=== PATIENT | female | born 1955 | race Caucasian/White ===

== ENCOUNTER → 2016-10-04 | Day surgery (SDC) | payer OTHER ==
[2016-10-04 08:37] LABS: ABSOLUTE BASOPHIL COUNT 0 /CUMM (0.0-0.2); ABSOLUTE EOSINOPHIL COUNT 0.2 /CUMM (0.0-0.7); ABSOLUTE GRANULOCYTE CT 4.6 /CUMM (1.4-6.5); ABSOLUTE LYMPH COUNT 1.8 /CUMM (1.2-3.4); ABSOLUTE MONOCYTE COUNT 0.4 /CUMM (0.10-0.60); BASOPHIL % 0.4 % (0.0-2.0); EOSINOPHIL % 3.1 % (0-5); HEMATOCRIT 41.3 % (37-47); MEAN CORPUSCULAR HGB 27.2 PG (27.0-31.0); MEAN CORPUSCULAR HGB CONC 33.6 G/DL (33.0-37.0); MEAN CORPUSCULAR VOLUME 80.8 FL (81.0-99.0); MEAN PLATELET VOLUME 9.1 FL (7.4-10.4); PLATELET COUNT 252 /CUMM (130-400); RBC DISTRIBUTION WIDTH 13.6 % (11.5-14.5); RED BLOOD CELL CT 5.12 /CUMM (4.20-5.40)
--- NOTE | 2016-10-04 11:15 | RADIOLOGY REPORT ---
EXAMINATION: XR ABDOMEN CLINICAL INDICATION: Cystocele/rectocele repair in OR. Question foreign body. Law suture. COMPARISON: CT from 10/28/2014 TECHNIQUE: Single view of the lower abdomen FINDINGS: Surgical clips overlie the right hemipelvis. There is a drain in place. Surgical clips overlie the right hemipelvis. Packing material overlies the region of the pubic symphysis. No unsuspected radiopaque foreign body identified. The bowel gas pattern is unremarkable. IMPRESSION: No unsuspected radiopaque foreign body. This critical result was discussed with MEA ALVARADO MD by telephone at 10/04/2016 11:11 AM and it was ascertained that the content and urgency of the report was understood at the time of direct communication.
--- NOTE | 2016-10-04 16:26 | Operative Report ---
Operative/Inv Procedure Report Surgery Date: 10/04/16 Name of Procedure: cystocele repair with mesh, rectocele with Acell mesh, urethral sling, cystoscopy Pre-Operative Diagnosis: cystocele, rectocele, urinary incontinence Post-Operative Diagnosis: same Estimated Blood Loss: 50ml to 100ml Surgeon/Chief [employer]: MAE ALVARADO MD Anesthesia: general endotracheal tube Implants: vaginal mesh x3 Complications: none Condition: stable Operative Indication: cystocele grade 3-4, rectocele grade 3, stress incontinence with bladder reduced with mesh repair Operative/Procedure Note Note: This an operative dictation on patient Eugenia Mckeon. Patient was identified in the holding area and consented for cystocele repair with mesh rectocele repair with a cell mesh urethral sling and cystoscopy. She was given the risks benefits and alternatives of the surgery. All questions were answered. Patient was taken to the operating room placed on the operating table in the supine position. Once the timeout was performed general anesthesia was started and the patient was intubated and IV antibiotics were infused. Patient was placed in the dorsal lithotomy position. She was prepped and draped in the standard sterile fashion after being shaved. Browning catheter was placed at the beginning of the surgery and the bladder was drained. This was clamped and placed on the patient's abdomen. Wynona retractor was placed for vaginal vault visualization. 1% lidocaine with epinephrine was infiltrated into the anterior vaginal wall from the bladder neck to the cervix. The vaginal flaps are created taking care not to injure the bladder. The Coloplast Restoril mesh was then opened and used to reduce the cystocele. This was done first using the By mouth thin to place Ethibond sutures in the sacrospinous ligament on the patient's left and right side retropubically. 2 sutures were also placed at the level of the bladder neck and the arcus tendineus fascia. These were then placed through the Restoril mesh as well as distal proximal 2-0 Vicryl sutures. The sacrospinous ligaments with sutures were then tied down and seen to be in position followed by the bladder neck sutures. The mesh was seen to reduce the cystocele nicely. This was in a tension-free manner. Methylene blue was given at this time to check for the patency of the ureteral orifices. The endoscope was irrigated and the incision was closed using running locking 2-0 Vicryl suture. The cystoscopy was performed at this point in the bladder was globally inspected. There was no abnormalities and the bladder or urethra. Ureteral orifices were easily identified and E Deflux was seen emanating from both ureters. 5 [place]an open-ended catheter was also used to cannulate the both in the easily passed. Patient bladder was then emptied and a Browning catheter was placed back into the bladder. The Altis Sling was then placed after the cystocele repair. The 1% lidocaine with epinephrine was infiltrated into the anterior vaginal wall suburethrally. The incision was made and the vaginal flaps are created taking care not to injure the urethra. The UltraSling kit was then used to place the mesh in a tension-free manner tightening the Prolene suture that's used for this map for this. The trochars that are provided by the kit was used to place into the ureter fascia. Sling was seen to be in a good flat orientation and a tension- free manner. There was grossly irrigated bacitracin irrigation. Incision was closed with a running locking 3-0 Vicryl suture. Cystoscopy was performed and there was no mesh in the bladder or the urethra. Bladder was emptied. Attention was then turned to the rectocele portion of the case. 1% lidocaine was infiltrated into the posterior vaginal wall. The vaginal posterior vaginal wall was then dissected free from the rectocele taking care not to injure to the rectum injure the rectum. Intermittent numb digitation of the rectum was performed to ensure that this did not occur. Once the rectocele was completely dissected free the 2-0 Vicryl interrupted sutures were placed along the lateral portion of the rectocele near the fascia. A cell mesh which had been placed into saline prior to that and soaking for 20 minutes was then used to place within the sutures and the sutures were tied down sequentially from the proximal portion to the distal portion. This reduced the rectocele nicely. The epithelium of the posterior vault was then closed using running locking 2-0 Vicryl suture. The peritoneum was closed using 3-0 Vicryl running locking suture. The sponge and needle count were correct at the end of the case. 2 inch vaginal packing impregnated with bacitracin ointment was placed into the vagina. Findings: no mesh in bladder or urethra, good ureteral efflux from both ureteral orifices. Discharge Disposition: PACU
== END ==
LOC: STS 01:58
PROVIDERS: Urology
DX: N39.3 Stress incontinence (female) (male) (principal); N81.10 Cystocele, unspecified; N81.6 Rectocele; I10 Essential (primary) hypertension; E11.9 Type 2 diabetes mellitus without complications; Z79.84 Long term (current) use of oral hypoglycemic drugs; Z86.718 Personal history of other venous thrombosis and embolism; Z79.82 Long term (current) use of aspirin
CPT/HCPCS: 74000; C1781; J0131; J0690; J2250

== ENCOUNTER 2017-09-30 17:55 | Inpatient (IN) | payer OTHER ==
[~2017-09-30] VITALS: Ht 165.1 cm; Wt 99.3 kg
--- NOTE | 2017-09-30 20:44 | ED GI/GU/ABDOMINAL COMPLAINT ---
History of Present Illness General Chief Complaint: General Adult Stated Complaint: "I HAVE A STOMACH VIRUS" Source: patient Exam Limitations: no limitations Allergies Coded Allergies: NO KNOWN ALLERGIES (10/07/13) Reconcile Medications Amlodipine Besylate 10 MG TABLET 1 TAB PO DAILY HIGH BLOOD PRESSURE (Reported ) Ergocalciferol (Vitamin D2) (Vitamin D2) 50,000 UNIT CAPSULE 1 CAP PO DAILY VITAMIN SUPPORT (Reported) Losartan/Hydrochlorothiazide (Losartan-Hctz 100-12.5 MG Tab) 100 MG-12.5 MG TABLET 1 TAB PO DAILY HIGH BLOOD PRESSURE (Reported) Metformin HCl 1,000 MG TABLET 1 TAB PO BID DIABETES (Reported) Pravastatin Sodium 40 MG TABLET 1 TAB PO DAILY HIGH CHOLESTROL (Reported) Propranolol HCl 10 MG TABLET 1 TAB PO DAILY HIGH BLOOD PRESSURE (Reported) Triage Note: PT STATES SHE HAS A STOMACH VIRUS SINCE FRIDAY. N/V Triage Nurses Notes Reviewed? yes ? n Is pt currently ? No Onset: Gradual Duration: day(s): Timing: multiple episodes today Quality/Severity: cramping, severe Severity Numbers: 10 Location: epigastric Radiation: no radiation Activities at Onset: none Prior Abdominal Problems: none Last Time You Were Sexual: greater than 2 months ago Sexual Orientation: Heterosexual No Modifying Factors: none Associated Symptoms: abdominal pain, diarrhea, loss of appetite, nausea/vomiting HPI: PATIENT IS A 62 Y/O FEMALE, PMH OF HTN, TYPE 2 DM, HLD, DVT/PE, UTERINE CANCER, LIDA PRESENTING WITH 2 DAYS OF ABDOMINAL PAIN. PATIENT STATES THAT HER PAIN COMES AND GOES THROUGHOUT THE DAY AND IS A 10/10 AT ITS WORST. SHE DESCRIBES IT A TWISTING SENSATION IN HER EPIGASTRIC AREA WITH ASSOCIATED NAUSEA, VOMITING, CONSTIPATION, DIARRHEA, BLOATING, AND GERD SYMPTOMS. SHE IS UNSURE OF THE COLOR OF HER STOOLS AND IF THERE WAS ANY BLOOD OR MUCOUS PRESENT. HER MOTHER RECENTLY HAD THE FLU AND THE PATIENT THINKS THAT THIS COULD BE RELATED TO THE FLU. SHE DENIES AND CP, SOB, HEADACHES, FEVERS, CHILLS, MUSCLE ACHES, DYSURIA. (Bird Morgan) Vital Signs & Intake/Output Vital Signs & Intake/Output Vital Signs Date Time Temp Pulse Resp B/P B/P Pulse O2 O2 Flow FiO2 Mean Ox Delivery Rate 10/03 2224 98.5 78 19 120/60 93 Nasal Cannula 01/05 2137 78 120/60 10/03 1502 99.0 77 18 114/66 96 Nasal Cannula 10/03 1400 99.0 77 18 114/66 96 Nasal 4.0L Cannula 10/03 1143 Nasal 2.0L Cannula 10/03 1029 76 146/78 10/03 1029 76 146/78 10/03 1028 76 146/78 10/03 0800 Nasal 4.0L Cannula 10/03 0600 99.5 69 18 110/60 92 Nasal 2.5L Cannula ED Intake and Output 10/04 0000 10/03 1200 Intake Total 620 400 Output Total 530 90 Balance 90 310 Intake, IV 400 Intake, Oral 620 Number 0 Bowel Movements Output, 180 90 Drainage Output, Urine 350 Patient 219 lb Weight (Katiana AMAYA,Candi Laura) Past History Travel History Traveled to [place] past 21 day No Medical History Any Pertinent Medical History? see below for history Cardiovascular: hypertension, hyperlipidemia Respiratory: obstructive sleep apnea, pulmonary embolism Musculoskeletal: DVT Endocrine: diabetes Cancer(s): endometrial cancer History of MRSA: No History of VRE: No History of CDIFF: No Influenza Vaccine: 06/29/13 Surgical History Surgical History: appendectomy, hysterectomy, HEMITHYMECTOMY Psychosocial History Who do you live with Mother Services at Home None What is your primary language [place] Tobacco Use: Never used ETOH Use: denies use Illicit Drug Use: denies illicit drug use Family History Family History, If Any: FATHER (HTN, lung CA ). Hx Contributory? No (Bird Morgan) Review of Systems Review of Systems Constitutional: Reports: no symptoms. EENTM: Reports: no symptoms. Respiratory: Reports: no symptoms. Cardiovascular: Reports: no symptoms. GI: Reports: see HPI. Genitourinary: Reports: no symptoms. Musculoskeletal: Reports: no symptoms. Skin: Reports: no symptoms. Neurological/Psychological: Reports: no symptoms. Hematologic/Endocrine: Reports: no symptoms. Immunologic/Allergic: Reports: no symptoms. All Other Systems: Reviewed and Negative (Bird Morgan) Physical Exam Physical Exam General Appearance: well developed/nourished, alert, awake, comfortable, mild distress, obese Head: atraumatic, normal appearance Eyes: Bilateral: normal appearance, EOMI. Ears, Nose, Throat, Mouth: hearing grossly normal, moist mucous membrane Neck: normal inspection, supple, normal alignment Respiratory: normal breath sounds, chest non-tender, no respiratory distress Cardiovascular: regular rate/rhythm, normal peripheral pulses Peripheral Pulses: 2+ radial (R), 2+ radial (L), 2+ tibialis posterior (R), 2+ tibialis posterior ( L), 2+ dorsalis pedis (R), 2+ dorsalis pedis (L) Gastrointestinal: normal bowel sounds, soft, no organomegaly, distention, tenderness, hernia Rectal: deferred Back: normal inspection Extremities: normal range of motion Neurologic/Psych: awake, alert, oriented x 3 Skin: intact Core Measures ACS in differential dx? No Sepsis Present: No Sepsis Focused Exam Completed? No (Bird Morgan) Progress Differential Diagnosis: biliary colic, bowel obstruction, diverticulitis, ischemic bowel, perforated viscous, SBO, UTI/pyelo Diagnostic Imaging: Viewed by Me: CT Scan. Discussed w/RAD: CT Scan. Initial ED EKG: none (Bird Morgan) Plan of Care: Orders Procedure Date/time Status Full Liquid Diet 10/03 L Active THERAPIST ORDERS 10/03 1600 Complete RT: Evaluation 10/03 1142 Active TRC EVALUATION (GEN) 10/03 UNK Complete PULSE OXIMETRY (GEN) 10/03 UNK Complete INCENTIVE SPIROMETRY TRX (GEN) 10/03 UNK Complete PT Evaluate & Treat 10/03 UNK Active PT EVAL LOW COMPLEX 20 MIN 10/03 UNK Complete Gait Training 10/03 UNK Complete CASE MANAGEMENT CONSULT 10/03 UNK Active OXYGEN 10/02 UNK Complete OXYGEN DAILY CHARGE 10/02 UNK Complete Current Medications Sig/Jasmin Start time Last Medication Dose Stop Time Status Admin Docusate Sodium 100 MG BID 10/03 1000 AC 10/03 (Colace) 2136 Pravastatin Sodium 40 MG 1700 10/02 1700 AC 10/03 (Pravachol) 1822 Amlodipine Besylate 10 MG DAILY 10/02 1000 AC 10/03 (Norvasc) 1028 Hydrochlorothiazide 12.5 MG DAILY 10/02 1000 AC 10/03 (Hydrodiuril) 1028 Losartan Potassium 100 MG DAILY 10/02 1000 AC 10/03 (Cozaar) 1029 Heparin Sodium 5,000 UNIT Q8 10/02 0800 AC 10/03 (Porcine) 2138 Oxycodone/ 1 TAB Q4P PRN 10/02 0800 AC Acetaminophen (Percocet) Oxycodone/ 2 TAB Q4P PRN 10/02 0800 AC Acetaminophen (Percocet) Propranolol HCl 10 MG BID 10/01 2199 AC 10/03 (Inderal 10 MG 2136 Tablet.) Insulin Human Regular 0 TIDAC/HS 10/01 2100 AC 10/03 (NovoLIN R) 1823 Acetaminophen 650 MG Q6P PRN 10/01 1944 AC (Tylenol) Morphine Sulfate 4 MG Q2P PRN 10/01 1944 AC 10/02 (Morphine) 0831 Ondansetron HCl 4 MG Q6P PRN 10/01 1944 AC 10/02 (Zofran) 0156 Promethazine HCl 12.5 MG Q6P PRN 10/01 1944 AC (Phenergen) 10/08 0014 Laboratory Tests 10/03/17 0735: Anion Gap 11, Estimated GFR > 60, BUN/Creatinine Ratio 15.7, CBC w Diff NO MAN DIFF REQ, RBC 4.26, MCV 82.2, MCH 27.9, RDW 12.8, MPV 9.9, Gran % 77.2 H, Lymphocytes % 14.2 L, Monocytes % 7.5, Eosinophils % 0.8, Basophils % 0.3, Absolute Granulocytes 8.7 H, Absolute Lymphocytes 1.6, Absolute Monocytes 0.8 H, Absolute Eosinophils 0.1, Absolute Basophils 0, PUBS MCHC 33.9 Radiology Impression: PATIENT: JOSH BAKER PRESENT AGE : 62 PATIENT ACCOUNT NO: [id number] : 56 LOCATION: [facility] ORDERING PHYSICIAN: Bird AMAYA SERVICE DATE: 09/30/17 EXAM TYPE: CAT - CT ABD & PELVIS W IV CONTRAST EXAMINATION: CT ABDOMEN AND PELVIS WITH CONTRAST CLINICAL INFORMATION: Abdominal pain, abdominal distention. COMPARISON: 2016. TECHNIQUE: Contiguous axial thin section helical images of the abdomen and pelvis were performed following the administration of 100 mL of intravenous Omnipaque 300 Optiray 320. The data set was reformatted in the coronal and sagittal planes and reviewed on an independent workstation. DLP: 983 mGy-cm. FINDINGS: The visualized lung bases are clear. The visualized portions of the heart are unremarkable. The liver is of normal size and attenuation without focal lesions nor intrahepatic biliary ductal dilation. There are calculi along with high attenuation bile within the gallbladder lumen. There is no wall thickening or discernible pericholecystic fluid. The spleen, pancreas, adrenal glands are unremarkable. Both kidneys are of normal size and attenuation without hydronephrosis or nephrolithiasis. Following the administration of IV contrast, prompt symmetric nephrograms are displayed. There is a small amount of free fluid overlying the right lobe of liver. There is neither mesenteric nor retroperitoneal lymphadenopathy. There is a lower anterior abdominal wall hernia containing bowel as well as a small amount of free fluid. Proximal to this hernia, there are dilated loops of bowel indicative of obstruction. There is a trace amount of pelvic free fluid. The urinary bladder is unremarkable. There is neither pelvic nor inguinal lymphadenopathy. Bone windows: Neither sclerotic nor lytic bone lesions are identified. IMPRESSION: Small bowel obstruction secondary to in utero abdominal wall hernia. Small amount of free fluid. Cholelithiasis without evidence of cholecystitis. DICTATED BY: Jordan Yanes MD DATE/TIME DICTATED:09/30/172239 VOCATIONAL NURSING INSTRUCTOR:GERMAN DATE/TIME TRANSCRIBED:2239 CONFIDENTIAL, DO NOT COPY WITHOUT APPROPRIATE AUTHORIZATION. < Electronically signed in Other Vendor System> SIGNED BY: Jordan Yanes MD 09/30/17 0081 Comments: CT scan shows small bowel obstruction. Findings were discussed with the patient. Awaiting general surgery page. Patient started on IV fluids. Discussed this patient with Dr. Adams, he recommends evaluation by surgical PA. MONIQUE Wahl present to see and evaluate patient. Patient's hernia was manually reduced. It Was recommended that patient be placed in observation regarding her hernia and small bowel obstruction. She may require NG tube, IV fluids, monitoring of further abdominal pain, surgical consult. (Katiana AMAYA,Candi Laura) Departure Departure Condition: Stable Referrals: Yadira Wick MD (PCP/Family) Departure Forms: Customer Survey General Discharge Information (Bird Morgan) Departure Disposition: STILL A PATIENT Clinical Impression Primary Impression: Abdominal hernia with obstruction Secondary Impressions: Small bowel obstruction Observation Note Spoke With: Bryan NARVAEZ,John Douglas Physician Advisor Notified: MANJU GUTIERREZ DO Place Patient In: Non-ED OBS Care Area Rationale for Observation: My rational for observation is as follows [small bowel obstruction due to hernia , hernia reduced however patient requiring observation to assess for further pain, further bowel obstruction, surgical consult]. (Candi Allen) PA/REGISTERED NURSE FETAL Co-Sign Statement Statement: ED Attending supervision documentation- [x] I saw and evaluated the patient. I have also reviewed all the pertinent lab results and diagnostic results. I agree with the findings and the plan of care as documented in the PA's/REGISTERED NURSE FETAL's documentation. pt with abd hernia w/ obstruction. merits surgical repair. pt to be admitted to surgery for further care. [] I have reviewed the ED Record and agree with the PA's/REGISTERED NURSE FETAL's documentation. [] Additions or exceptions (if any) to the PAs/REGISTERED NURSE FETAL's note and plan are summarized below: [] (Lidia NARVAEZ,Ernie Starr) Secondary Impressions: Small bowel obstruction Observation Note Spoke With: Bryan NARVAEZ,John Douglas Physician Advisor Notified: MANJU GUTIERREZ DO Place Patient In: Non-ED OBS Care Area Rationale for Observation: My rational for observation is as follows [small bowel obstruction due to hernia , hernia reduced however patient requiring observation to assess for further pain, further bowel obstruction, surgical consult]. (Candi Allen)
[2017-09-30] MEDS ORDERED: PROPRANOLOL HCL10 M1 PO (21:35)
[2017-09-30] MEDS ORDERED: AMLODIPINE BESY10 M1 PO (21:36)
[2017-09-30] MEDS ORDERED: METFORMIN HCL1000 M1 PO (21:38)
[2017-09-30] MEDS ORDERED: VITAMIN D250000 UNIT PO (21:38)
[2017-09-30] MEDS ORDERED: PRAVASTATIN SOD40 M2 PO (21:39)
[2017-09-30] MEDS ORDERED: LOSARTAN-HCTZ1 EACH PO (21:39)
[2017-09-30 21:44] LABS: ABSOLUTE BASOPHIL COUNT 0 /CUMM (0.0-0.2); ABSOLUTE EOSINOPHIL COUNT 0.1 /CUMM (0.0-0.7); ABSOLUTE GRANULOCYTE CT 8.4 /CUMM (1.4-6.5); ABSOLUTE LYMPH COUNT 1.5 /CUMM (1.2-3.4); ABSOLUTE MONOCYTE COUNT 0.8 /CUMM (0.10-0.60); BASOPHIL % 0.2 % (0.0-2.0); EOSINOPHIL % 0.7 % (0-5); GRANULOCYTE % 77.8 % (42.2-75.2); HEMATOCRIT 45.5 % (37-47); MEAN CORPUSCULAR HGB 27.9 PG (27.0-31.0); MEAN CORPUSCULAR HGB CONC 33.8 G/DL (33.0-37.0); MEAN CORPUSCULAR VOLUME 82.7 FL (81.0-99.0); MEAN PLATELET VOLUME 9.3 FL (7.4-10.4); PLATELET COUNT 300 /CUMM (130-400); RBC DISTRIBUTION WIDTH 12.8 % (11.5-14.5); WHITE BLOOD CELL COUNT 10.8 /CUMM (4.8-10.8)
--- NOTE | 2017-09-30 22:55 | CT SCAN REPORT ---
EXAMINATION: CT ABDOMEN AND PELVIS WITH CONTRAST CLINICAL INFORMATION: Abdominal pain, abdominal distention. COMPARISON: 10/04/2016. TECHNIQUE: Contiguous axial thin section helical images of the abdomen and pelvis were performed following the administration of 100 mL of intravenous Omnipaque 300 Optiray 320. The data set was reformatted in the coronal and sagittal planes and reviewed on an independent workstation. DLP: 983 mGy-cm. FINDINGS: The visualized lung bases are clear. The visualized portions of the heart are unremarkable. The liver is of normal size and attenuation without focal lesions nor intrahepatic biliary ductal dilation. There are calculi along with high attenuation bile within the gallbladder lumen. There is no wall thickening or discernible pericholecystic fluid. The spleen, pancreas, adrenal glands are unremarkable. Both kidneys are of normal size and attenuation without hydronephrosis or nephrolithiasis. Following the administration of IV contrast, prompt symmetric nephrograms are displayed. There is a small amount of free fluid overlying the right lobe of liver. There is neither mesenteric nor retroperitoneal lymphadenopathy. There is a lower anterior abdominal wall hernia containing bowel as well as a small amount of free fluid. Proximal to this hernia, there are dilated loops of bowel indicative of obstruction. There is a trace amount of pelvic free fluid. The urinary bladder is unremarkable. There is neither pelvic nor inguinal lymphadenopathy. Bone windows: Neither sclerotic nor lytic bone lesions are identified. IMPRESSION: Small bowel obstruction secondary to in utero abdominal wall hernia. Small amount of free fluid. Cholelithiasis without evidence of cholecystitis.
--- NOTE | 2017-09-30 23:52 | History & Physical Pre-Op ---
Talha Stanford 09/30/17 2348: General Information and HPI MD Statement: I have seen and personally examined JOSH BAKER and documented this H&P. The patient is a 62 year old F who presented with a patient stated chief complaint of abdominal pain. Source of Information: patient, old records Exam Limitations: no limitations History of Present Illness: 62-year-old female presents the emergency department with 2 days of central abdominal pain, nausea, dry heaving, decreased appetite. She states she has a known ventral abdominal hernia after her section. A CT scan was performed by the emergency department which shows a ventral abdominal hernia with small bowel contents resulting in a small bowel obstruction. Surgery was consulted for further management. She has no history of obstruction previously. She states she had a small bowel movement earlier today. She has since stopped passing gas. She is not actively vomiting but states that she dry heaves when she tries to drink or eat anything. Her hysterectomy was 8 years ago and she has noted a hernia since that was actively reducible and worse when she sat up and strained herself. She noted more pain in this area today and more firmness. Her hysterectomy was open as well as a previous open appendectomy . Postoperative hysterectomy course was Complicated by a PE which required anticoagulation. She did not have the hernia fixed secondary to the anticoagulation however she no longer requires full dose anticoagulation, only aspirin. Allergies/Medications Allergies: Coded Allergies: NO KNOWN ALLERGIES (10/07/13) Home Med list Amlodipine Besylate 10 MG TABLET 1 TAB PO DAILY HIGH BLOOD PRESSURE (Reported ) Ergocalciferol (Vitamin D2) (Vitamin D2) 50,000 UNIT CAPSULE 1 CAP PO DAILY VITAMIN SUPPORT (Reported) Losartan/Hydrochlorothiazide (Losartan-Hctz 100-12.5 MG Tab) 100 MG-12.5 MG TABLET 1 TAB PO DAILY HIGH BLOOD PRESSURE (Reported) Metformin HCl 1,000 MG TABLET 1 TAB PO BID DIABETES (Reported) Pravastatin Sodium 40 MG TABLET 1 TAB PO DAILY HIGH CHOLESTROL (Reported) Propranolol HCl 10 MG TABLET 1 TAB PO DAILY HIGH BLOOD PRESSURE (Reported) Past History Medical History Cardiovascular: hypertension, hyperlipidemia Respiratory: obstructive sleep apnea, pulmonary embolism Musculoskeletal: DVT Endocrine: diabetes Cancer(s): endometrial cancer History of MRSA: No History of VRE: No History of CDIFF: No Influenza Vaccine: 06/29/13 Surgical History Pertinent Surgical History: appendectomy, hysterectomy, HEMITHYMECTOMY Past Family/Social History Family History Relations & Conditions if any FATHER (HTN, lung CA ). Psychosocial History Services at Home None ETOH Use: denies use Illicit Drug Use: denies illicit drug use Functional Ability ADLs Independent: dressing, eating, toileting, bathing. Review of Systems Review of Systems: Review of systems: See HPI, all other systems negative. Constitutional: No chills fever or weight loss HEENT: No visual changes no sore throat no congestion Cardiovascular: No chest pain ,palpitation , orthopnea or ankle swelling Skin: No jaundice no rashes Respiratory: No dyspnea cough sputum or hemoptysis GI: See HPI : No dysuria no hematuria Musclulo skeletal: No back pain no neck pain, Neurologic: No numbness no confusion Psych: No stress anxiety or depression,. Heme/endocrine: No bruising no bleeding no polyuria or polydipsia Immunology: No splenectomy or history of AIDS Exam & Diagnostic Data Last 24 Hrs of Vital Signs/I&O Vital Signs Date Time Temp Pulse Resp B/P B/P Pulse O2 O2 Flow FiO2 Mean Ox Delivery Rate 09/30 2155 99.6 76 18 146/74 95 Room Air 09/30 1826 98.0 84 16 162/95 99 Room Air Physical Exam: Well-developed well-nourished no apparent distress. HEENT: Atraumatic, extraocular motion intact Neck: Supple, no lymphadenopathy Heart: Regular rate and rhythm no murmur Respiratory: No respiratory distress clear to auscultation bilateral., Abdomen: Obese, distended, ventral hernia noted lower abdominal region, mostly on the left side, midline and lateral at the previous hysterectomy incision. Firm, swollen, mildly tender palpation. No erythema. Positive bowel sounds. Extremities: No edema, no calf pain Neuro: Alert and oriented x3 Psych: Mood affect normal, normal memory normal judgment. Skin: Warm and dry, no rash on exposed skin Last 24 Hrs of Labs/Tyree: Laboratory Tests 09/30/17 2250: Urine Color YEL, Urine Clarity CLEAR, Urine pH 6.0, Ur Specific [place] 1.020, Urine Protein NEG, Urine Ketones NEG, Urine Nitrite NEG, Urine Bilirubin NEG, Urine Urobilinogen 0.2, Ur Leukocyte Esterase NEG, Ur Microscopic EXAM NOT REQUIRED, Urine Hemoglobin NEG, Urine Glucose NEG 09/30/178: Anion Gap 11, Estimated GFR > 60, BUN/Creatinine Ratio 30.0 H, Glucose 151 H, Lactic Acid 1.3, Calcium 8.9, Total Bilirubin 1.2, AST 16, ALT 33, Alkaline Phosphatase 126, Total Protein 6.7, Albumin 3.8, Globulin 2.9, Albumin/Globulin Ratio 1.3, Lipase 169, CBC w Diff NO MAN DIFF REQ, RBC 5.50 H, MCV 82.7, MCH 27.9, RDW 12.8, MPV 9.3, Gran % 77.8 H, Lymphocytes % 13.8 L, Monocytes % 7.5, Eosinophils % 0.7, Basophils % 0.2, Absolute Granulocytes 8.4 H, Absolute Lymphocytes 1.5, Absolute Monocytes 0.8 H, Absolute Eosinophils 0.1, Absolute Basophils 0, PUBS MCHC 33.8 Diagnostic Data Other Results PATIENT: JOSH BAKER PRESENT AGE: 62 PATIENT ACCOUNT NO: [id number] : 56 LOCATION: [facility] ORDERING PHYSICIAN: Bird AMAYA SERVICE DATE: 09/30/17 EXAM TYPE: CAT - CT ABD & PELVIS W IV CONTRAST EXAMINATION: CT ABDOMEN AND PELVIS WITH CONTRAST CLINICAL INFORMATION: Abdominal pain, abdominal distention. COMPARISON: 10/04/2016. TECHNIQUE: Contiguous axial thin section helical images of the abdomen and pelvis were performed following the administration of 100 mL of intravenous Omnipaque 300 Optiray 320. The data set was reformatted in the coronal and sagittal planes and reviewed on an independent workstation. DLP: 983 mGy-cm. FINDINGS: The visualized lung bases are clear. The visualized portions of the heart are unremarkable. The liver is of normal size and attenuation without focal lesions nor intrahepatic biliary ductal dilation. There are calculi along with high attenuation bile within the gallbladder lumen. There is no wall thickening or discernible pericholecystic fluid. The spleen, pancreas, adrenal glands are unremarkable. Both kidneys are of normal size and attenuation without hydronephrosis or nephrolithiasis. Following the administration of IV contrast, prompt symmetric nephrograms are displayed. There is a small amount of free fluid overlying the right lobe of liver. There is neither mesenteric nor retroperitoneal lymphadenopathy. There is a lower anterior abdominal wall hernia containing bowel as well as a small amount of free fluid. Proximal to this hernia, there are dilated loops of bowel indicative of obstruction. There is a trace amount of pelvic free fluid. The urinary bladder is unremarkable. There is neither pelvic nor inguinal lymphadenopathy. Bone windows: Neither sclerotic nor lytic bone lesions are identified. IMPRESSION: Small bowel obstruction secondary to in utero abdominal wall hernia. Small amount of free fluid. Cholelithiasis without evidence of cholecystitis. DICTATED BY: Jordan Yanes MD DATE/TIME DICTATED:09/30/172239 MOLDING PRESS OPERATOR:GERMAN DATE/TIME TRANSCRIBED:09/30/172239 Assessment/Plan Assessment/Plan: 62-year-old female with ventral abdominal wall hernia resulting in small bowel obstruction. Gentle abdominal pressure was applied to the lower abdominal incisional ventral hernia with the patient in Trendelenburg and her knees flexed. Manual reduction of the hernia was achieved without difficulty. The hernia was then noted to slide back out when she sat up and strained herself however it was then again reduced without difficulty. Patient requires 23 hour observation for continued monitoring after the hernia was reduced in the emergency department. Nothing by mouth for now, monitoring for recurrence, pain management, IV antiemetics as needed. She may need NG tube if abdominal pain, distention or vomiting recurs. There is also potential for surgical fixation of this hernia and abdominal wall defect during this hospitalization depending upon how patient does over the next 12-24 hours. Discussed with patient understands and agrees with plan. Discussed with Dr. Adams As Ranked By This Provider Problem List: 1. Abdominal hernia with obstruction John Adams MD 10/01/17 1140: Assessment/Plan Copies To: Delano NARVAEZ,Yadira Attending Review Statement Attending Statement Attending Statement: examined this patient, discuss w/resident/PA/LIVESTOCK HAULIER, reviewed images Attending Assessment/Plan: Patient with large bowel containing incisional hernia related to radical hysterectomy. There is intestinal obstruction related to small bowel loops incarcerated hernia. Hernia has been reduced but quickly recurs. Therefore should be taking the OR for laparoscopic repair of her incisional hernia. She is informed the risk of the operation including bleeding infection and recurrence of her hernia and she agrees to proceed
[2017-10-01 01:22] VITALS: BP 150/80
[2017-10-01 06:37] VITALS: BP 142/68
--- NOTE | 2017-10-01 07:26 | PN- General Surgery ---
Subjective Subjective: Pt laying in bed, comfortable, very minimal abdominal pain. Denies nausea and vomiting. says she has no passed flatus. Feels that the hernia has no popped out again since being reduced in the ED because she has not gotten out of bed yet. Denies fever. Objective Vital Signs and I&Os Vital Signs Date Time Temp Pulse Resp B/P B/P Pulse O2 O2 Flow FiO2 Mean Ox Delivery Rate 10/01 0637 98.6 95 18 142/68 95 10/01 0122 99.0 80 18 150/80 99 Room Air 10/01 0053 98.7 80 16 130/75 95 Room Air Room Air 09/30 2155 99.6 76 18 146/74 95 Room Air 09/30 1826 98.0 84 16 162/95 99 Room Air Intake & Output 10/01 0800 10/01 0000 09/30 1600 09/30 0800 09/30 0000 09/29 1600 Intake Total 1000 Output Total Balance 1000 Intake, IV 1000 Patient 220 lb 220 lb Weight Weight Reported by Patient Measurement Method Physical Exam: gen- AA x3, NAD resp- CTAB cardio- RRR abd- obese, ND, +BS, soft, nontender to palpation Results Last 48 Hours of Labs: Laboratory Tests 10/01 10/01 09/30 0711 0134 2250 Chemistry Sodium Pending Potassium Pending Chloride Pending Carbon Dioxide Pending Anion Gap Pending BUN Pending Creatinine Pending BUN/Creatinine Ratio Pending Lactic Acid (0.7 - 2.1 mmol/L) 1.1 Urines Urine Color (YEL,AMB,STR) YEL Urine Clarity (CLEAR) CLEAR Urine pH (5.0 - 8.0) 6.0 Ur Specific [place] (1.001 - 1.035) 1.020 Urine Protein (NEG,<30 MG/DL) NEG Urine Ketones (NEG) NEG Urine Nitrite (NEG) NEG Urine Bilirubin (NEG) NEG Urine Urobilinogen (0.1 - 1.0 EU/dl) 0.2 Ur Leukocyte Esterase (NEG) NEG Ur Microscopic EXAM NOT REQUIRED Urine Hemoglobin (NEG) NEG Urine Glucose (N MG/DL) NEG 09/30 2127 Chemistry Sodium (137 - 145 mmol/L) 133 L Potassium (3.5 - 5.1 mmol/L) 3.7 Chloride (98 - 107 mmol/L) 98 Carbon Dioxide (22 - 30 mmol/L) 24 Anion Gap (5 - 16) 11 BUN (7 - 17 mg/dL) 18 H Creatinine (0.5 - 1.0 mg/dL) 0.6 Estimated GFR (>60 ml/min) > 60 BUN/Creatinine Ratio (7 - 25 %) 30.0 H Glucose (65 - 99 mg/dL) 151 H Lactic Acid (0.7 - 2.1 mmol/L) 1.3 Calcium (8.4 - 10.2 mg/dL) 8.9 Total Bilirubin (0.2 - 1.3 mg/dL) 1.2 AST (14 - 36 U/L) 16 ALT (9 - 52 U/L) 33 Alkaline Phosphatase (<127 U/L) 126 Total Protein (6.3 - 8.2 g/dL) 6.7 Albumin (3.5 - 5.0 g/dL) 3.8 Globulin (1.9 - 4.2 gm/dL) 2.9 Albumin/Globulin Ratio (1.1 - 2.2 %) 1.3 Lipase (23 - 300 U/L) 169 Hematology CBC w Diff NO MAN DIFF REQ WBC (4.8 - 10.8 /CUMM) 10.8 RBC (4.20 - 5.40 /CUMM) 5.50 H Hgb (12.0 - 16.0 G/DL) 15.4 Hct (37 - 47 %) 45.5 MCV (81.0 - 99.0 FL) 82.7 MCH (27.0 - 31.0 PG) 27.9 RDW (11.5 - 14.5 %) 12.8 Plt Count (130 - 400 /CUMM) 300 MPV (7.4 - 10.4 FL) 9.3 Gran % (42.2 - 75.2 %) 77.8 H Lymphocytes % (20.5 - 51.1 %) 13.8 L Monocytes % (1.7 - 9.3 %) 7.5 Eosinophils % (0 - 5 %) 0.7 Basophils % (0.0 - 2.0 %) 0.2 Absolute Granulocytes (1.4 - 6.5 /CUMM) 8.4 H Absolute Lymphocytes (1.2 - 3.4 /CUMM) 1.5 Absolute Monocytes (0.10 - 0.60 /CUMM) 0.8 H Absolute Eosinophils (0.0 - 0.7 /CUMM) 0.1 Absolute Basophils (0.0 - 0.2 /CUMM) 0 PUBS MCHC (33.0 - 37.0 G/DL) 33.8 Assessment/Plan Assessment/Plan 62yo F with ventral abdominal wall hernia resulting in small bowel obstruction that appears to be resolving. Patient requires 23 hour observation for continued monitoring after the hernia was reduced in the emergency department. NPO Pain management IV antiemetics as needed Encourage ambulation to see if hernia recurs and if tolerable or not She may need NG tube if abdominal pain, distention or vomiting recurs. Will discuss with Dr. Adams if pt will require surgical repair during this admission vs. elective repair Core Measures Venous Thromboembolism VTE Risk Factors VTE (Previous) No Mechanical VTE Prophylaxis d/t N/A MechProphylax Ordered No VTE Pharm Prophylaxis d/t NA PharmProphylax ordered
[2017-10-01 14:30] VITALS: BP 130/52
--- NOTE | 2017-10-01 19:12 | Operative Report ---
Operative/Inv Procedure Report Surgery Date: 10/01/17 Name of Procedure: 1. Laparoscopic converted to open incisional hernia repair with onlay mesh 2. Bilateral components separation Pre-Operative Diagnosis: Incisional hernia Post-Operative Diagnosis: Same Estimated Blood Loss: 50ml to 100ml Surgeon/Hotel Operations Manager: Bryan NARVAEZ,John Douglas/Meryl Perez/Delvin AMAYA Anesthesia: general endotracheal tube Implants: gore bio a mesh Drains: 19 Burmese Benjamin-Olivas 2 Specimens: Hernia sac Operative Indication: See preoperative H&P Operative/Procedure Note Note: After consent patient was brought to the operative room and laid supine. Gen. anesthesia was obtained and her left arm tucked. She her abdomen was then prepped and draped. The skin and left upper quadrant was after local anesthesia and a transverse incision made sharply. Using a 12 mm optical trocar we gained access to the peritoneum visually. Pneumoperitoneum was achieved. No overt bowel injury was identified. 2, 5 mm ports were placed and left lower quadrant after local anesthesia was instilled and under direct vision the camera. The abdomen was explored. There were multiple loops of small bowel herniated into massive hernia defect. Its band approximately 20 x 30 cm transverse longitudinal respectively. We lysed the adhesions of omentum and small bowel from the defect. However given the size of the defect I elected not to repair it laparoscopically as it would most certainly recur. Therefore conversion to open was taken. Incision made sharply through midline scar. We entered the sac with cautery and then dissected free from the subcutaneous tissues tissues with cautery. Sac was excised circumferentially with cautery and passed off the field. The resultant defect was about 20 x 30 cm. There is no way that the fascia come together primarily given the undue tension. I elected to perform anterior component separation. Took down the subcutaneous tissue off of the abdominal wall bilaterally with cautery. Laterally we try to preserve the perforating vessels. Once we got lateral to the rectus abdominis, the external oblique was incised with cutting cautery from the costal margin to the inguinal ligament. The external oblique was then dissected free from the underlying internal oblique musculature throughout the course of the dissection. This was repeated on both sides. At this point we had created pre-significant advancement flaps. The fascia was then closed in the midline with a running 0 Maxon suture. There was a modest amount of tension. I then placed a piece of [place] bio a mesh in the midline as an onlay. I chose a 25 x 10 cm piece. It was tacked circumferentially with interrupted 0 Maxon sutures, total of 8 locations. Bilateral 19 Burmese Benjamin-Olivas round drains were then placed and tunneled inferiorly. There sutured to skin with 2-0 nylon. Wound was then irrigated normal saline. Hemostasis was adequate. The incision was then closed in layers of 2-0 Vicryl sutures and skin gloria. Sterile dressings were applied. Sponge and needle counts are correct Findings: Massive loss of domain hernia CC: Delano NARVAEZ,Yadira
[2017-10-01 21:15] VITALS: BP 132/76
[2017-10-02 01:10] VITALS: BP 110/68
[2017-10-02 03:25] VITALS: BP 112/74
[2017-10-02 06:24] VITALS: BP 120/64
--- NOTE | 2017-10-02 07:07 | PN- Student ---
See Addendum Tre Fong 10/02/17 0642: Subjective Subjective: Eugenia is a 62yo female 1 day post op incisional hernia/SBO procedure. She is sitting upright in bed with mild discomfort during the exam. She states she has a 10/10 'sharp stabbing' pain at the anterior aspect of her abdomen which is worse when getting out of bed. This pain sometimes radiates down her left leg. Eugenia is requesting additional pain medication as she states the abdominal binder is very uncomfortable. Patient has not attempted to eat anything since the procedure. Denies BM. Pt has urinated- denies hematuria. She has no other complaints at this time ROS: Denies h/a, changes in vision, tinnitus, difficulty swallowing, SOB, chest pain, numbness/tingling in extremeties, dizziness or syncope. POSITIVE FINDINGS: Mild lightheadedness upon standing, abdominal pain ( generalized sharp stabbing pain- worse with light palpation). Objective Objective: GENERAL: AxOx4, sitting upright in bed, in NAD. RESP: CTAB, decreased respiratory efford due to pain with deep inspiration. CARDIO: RRR, S1S2 audible, slightly bradycardic on exam. No M/R/G appreciated. ABD: Pt has abdominal binder in place appropriately, no blood/fluid noted, tender throughout with light palpation. Incision was not visualized at this time. 2 large drains placed (1 L side, 1 R side), sparse blood noted in both drains- no pus or discharge appreciated. MUSC: No extremity pain on palpation, full ROM of arms/legs. NEURO: Sensation intact throughout. Assessment/Plan Assessment: Eugenia is recovering well from her hernia/SBO repair performed 10/01/2017. She states she discomfort throughout her abdomen, but is sitting upright in bed in no acute distress. She is stating the abdominal binder is uncomfortable, but we have discussed the importance of this device and she understands she needs to continue to wear it. Her incision site was not visualized directly at this time, but the dressing is in place, clean and shows no evidence of irritation/leakage. She has not attempted to eat anything since her procedure and has not had a bowel movement. No other complaints at this time Plan: Encourage Eugenia to being clear fluids PO. - Monitor for BM: check for hematochezia/melena. - Discourage patient from straining. Continue the use of the abdominal binder. Encourage the patient to get out of bed and into chair today. - PT consult/evaluation- if tolerated well, encourage short walks around the unit. - No heavy lifting/rapid movements. Continue current medications with the following changes: -Will discuss increasing pain medications with preceptor for increased pain post op. Current Medications Sig/Jasmin Start time Last Medication Dose Route Stop Time Status Admin Acetaminophen 650 MG Q6P PRN 10/01 1945 AC PO Acetaminophen 1,000 MG .STK-MED ONE 10/01 1552 DC IV 10/01 1553 Acetaminophen 650 MG Q6P PRN 10/01 0015 DC PO Amlodipine Besylate 10 MG DAILY 10/02 1000 AC PO Amlodipine Besylate 10 MG DAILY 10/01 1000 DC 10/01 PO 1036 Cefazolin Sodium 2 GM IQ8 10/02 0000 AC 10/01 N/A 1 UNIT IV 10/02 0829 2355 Dextrose/Sodium 1,000 ML Q10H 10/01 1945 AC 10/02 Chloride [place] 0501 Dextrose/Sodium 1,000 ML Q8H 10/01 1115 DC Chloride IV Dextrose/Sodium 1,000 ML ONCE ONE 10/01 0130 DC 10/01 Chloride IV 10/01 1129 0150 Fentanyl Citrate 200 MCG .STK-MED ONE 10/01 1553 DC IM 10/01 1554 Heparin Sodium 5,000 UNIT Q8 10/01 0015 DC 10/01 (Porcine) SC 0603 Hydrochlorothiazide 12.5 MG DAILY 10/02 1000 AC PO Hydrochlorothiazide 12.5 MG DAILY 10/01 1000 DC 10/01 PO 1037 Hydromorphone HCl 2 MG .STK-MED ONE 10/01 2055 DC IM 10/01 205 Hydromorphone HCl 2 MG .STK-MED ONE 10/01 1552 DC IM 10/01 1553 Insulin Human Regular 0 TIDAC/HS 10/01 2100 AC SC Insulin Human Regular 0 Q6 10/01 0600 DC 10/01 SC 1517 Losartan Potassium 100 MG DAILY 10/02 1000 AC PO Losartan Potassium 100 MG DAILY 10/01 1000 DC 10/01 PO 1037 Midazolam HCl 2 MG .STK-MED ONE 10/01 1553 DC IM 10/01 1554 Morphine Sulfate 2 MG Q2P PRN 10/01 1945 AC IV Morphine Sulfate 4 MG Q2P PRN 10/01 194 AC 10/02 IV 0501 Morphine Sulfate 2 MG Q2P PRN 10/01 0015 DC IV Morphine Sulfate 4 MG Q2P PRN 10/01 0015 DC IV Ondansetron HCl 4 MG Q6P PRN 10/01 1945 AC 10/02 IV 0156 Ondansetron HCl 4 MG Q6P PRN 10/01 0015 DC IV Pantoprazole Sodium 40 MG DAILY 10/01 0030 DC 10/01 IV 1036 Patient Medication 1 ED ONE ONE 10/01 1230 DC 10/01 Teaching ED 10/01 1231 1518 Potassium Chloride 20 MEQ Q8H 10/01 1515 DC 10/01 Dextrose/Sodium 1,000 ML IV 1517 Chloride Pravastatin Sodium 40 MG 1700 10/02 1700 AC PO Pravastatin Sodium 40 MG 1700 10/01 1700 DC PO Promethazine HCl 12.5 MG Q6P PRN 10/01 1945 AC IV 10/08 0014 Promethazine HCl 12.5 MG Q6P PRN 10/01 0015 DC IV 10/08 0014 Propranolol HCl 10 MG BID 10/01 2200 AC 10/01 PO 2131 Propranolol HCl 10 MG BID 10/01 1000 DC 10/01 PO 1037 Talha Stanford 10/02/17 0800: Resident Review Statement Resident Statement: examined this patient, amended to note Other Findings: Patient would prefer not to increase her pain medication at this time, she states that she is "sore from surgery but expected it." JPs noted in place, bloody drainage noted in each one. Dressing with scant amount of bloody drainage noted inferior aspect which is currently dry. voiding large amounts. POCD#1 Status post open anterior incisional hernia repair Continue clears Dressing change postop day 2 DVT prophylaxis with heparin Follow labs Decrease IV fluids, patient tolerating clears and urinating large amounts Out of bed, ambulate Continue MARE drains add PO pain meds (percocet) Perioperative abx abdominal binder
[2017-10-02 08:19] LABS: ABSOLUTE BASOPHIL COUNT 0 /CUMM (0.0-0.2); ABSOLUTE EOSINOPHIL COUNT 0 /CUMM (0.0-0.7); ABSOLUTE GRANULOCYTE CT 9.5 /CUMM (1.4-6.5); ABSOLUTE LYMPH COUNT 1.4 /CUMM (1.2-3.4); ABSOLUTE MONOCYTE COUNT 0.9 /CUMM (0.10-0.60); BASOPHIL % 0.1 % (0.0-2.0); EOSINOPHIL % 0.1 % (0-5); GRANULOCYTE % 80.6 % (42.2-75.2); MEAN CORPUSCULAR HGB CONC 33.5 G/DL (33.0-37.0); MEAN CORPUSCULAR VOLUME 83.6 FL (81.0-99.0); MEAN PLATELET VOLUME 9.4 FL (7.4-10.4); PLATELET COUNT 296 /CUMM (130-400); RBC DISTRIBUTION WIDTH 13.3 % (11.5-14.5); RED BLOOD CELL CT 4.58 /CUMM (4.20-5.40); WHITE BLOOD CELL COUNT 11.8 /CUMM (4.8-10.8)
[2017-10-02 08:40] LABS: HEMATOCRIT 38.3 % (37-47)
[2017-10-02 11:53] VITALS: BP 110/78
--- NOTE | 2017-10-02 12:10 | Patient Discharge Instructions ---
Discharge Instructions General Discharge Information You were seen/treated for: Incisional hernia You had these procedures: On 10/01/17, 1. Laparoscopic converted to open incisional hernia repair with onlay mesh 2. Bilateral components separation Watch for these problems: Increased abdominal pain, distention, nausea, vomiting, fever > 101.3, inability to pass gas/move your bowels Call Surgeon to remove: [place] Do not soak the wound: Yes No bath, but you may shower: Yes Other wound care: Keep incisions clean an dry Daily dry dressing changes as needed Diet Continue normal diet: Yes Activity Full Activity/No Limits: No Pounds, do NOT lift more than: 10 Other activity limits: No heavy lifting or strenous activity x 4 weeks Acute Coronary Syndrome Inclusion Criteria At DC or during hospital stay patient has or had the following: ACS DIAGNOSIS No Discharge Core Measures Meds if any: Prescribed or Continued at Discharge Meds if any: NOT Prescribed or Continued at Discharge Congestive Heart Failure Inclusion Criteria At DC or during hospital stay patient has or had the following: CHF DIAGNOSIS No Discharge Core Measures Meds if any: Prescribed or Continued at Discharge Meds if any: NOT Prescribed or Continued at Discharge Cerebrovascular accident Inclusion Criteria At DC or during hospital stay patient has or had the following: Discharge Core Measures Meds if any: Prescribed or Continued at Discharge Meds if any: NOT Prescribed or Continued at Discharge Venous thromboembolism Inclusion Criteria VTE Diagnosis No VTE Type NONE VTE Confirmed by (Test) NONE Discharge Core Measures - Per Current guidelines, there needs to be overlap - treatment for the first 5 days of Warfarin therapy. - If discharged on Warfarin prior to 5 days of - overlap therapy, the patient will need to be - assessed for post discharge needs including - *Post discharge parental anticoagulation - *Warfarin and/or parental anticoagulation education - *Follow up date to check INR post discharge At least 5 days overlap therapy as Inpatient No Meds if any: Prescribed or Continued at Discharge Note: Overlap Therapy is Warfarin and Anticoagulant Meds if any: NOT Prescribed or Continued at Discharge
[2017-10-02 16:00] VITALS: BP 100/68
[2017-10-02 20:00] VITALS: BP 116/62
[2017-10-03 06:00] VITALS: BP 110/60
--- NOTE | 2017-10-03 07:12 | PN- Student ---
Tre Fong 10/03/17 0645: Subjective Subjective: Eugenai is a 62yo female 2 days post op ventral incisional hernia repair r/t SBO. Pt continues to describe her 10/10 'sharp/stabbing' pain throughout her abdomen which has not changed since yesterday. This pain is worse when standing up and coughing. Eugenia has developed a non-productive cough throughout the night exacerbating her abdominal pain. Clear fluid diet currently in place- denies BM but has occasional flatus. + urination (denies hematuria). She has been ambulating from the bed to the chair or bathroom with slight difficulty due to her abdominal pain. Denies H/A, SOB, chest pain, N/V/D or extemity pain/weakness. No complaints at this time. Objective Objective: GENERAL: A+Ox4, sitting upright in chair in NAD, currently on IV dextrose and nasal cannula. RESP: Diminished respiratory effort due to abd pain with deep inspiration. Mild rhonchi audible in upper lobes bilaterally- patient has sensation of 'mucus' she can't cough up. CARDIO: RRR, no M/R/G, audible S1, S2. ABD: Patient has abdominal binder in place. Dressing is clean, dry and intact. No erythema or warmth noted. [address]- both have been recently emptied- minimal blood noted in both drains. MUSC: 5/5 strength throughout, no pain upon palpation. No edema noted in any extremities. NEURO: Sensation intact. Assessment/Plan Assessment: Eugenia is a 62 yo female day 2 post op ventral incisional hernia repair. She is recovering well and is in no acute distress. Patient is complaining of non productive cough and diffuse 10/10 abdominal pain. She has a mildly elevated WBC (11.8), but denies fever/chills. - Neg urine culture 10/02/2017. Plan: Continue to encourage ambulation in unit. Repeat CBC with focus on trending WBC. Will discuss increasing PO diet with preceptor. - Possibly begin soft foods/monitor for BM. Will discuss with preceptor possible incentive spirometer implication for cough/ rhonchi. Meryl Ayala 10/03/17 0822: Assessment/Plan Plan: agree with above PA-S note tolerating clears. d/c iv fluids she has not been ambulating. PT eval and oob/ambulation today check cxr. IST. titrate off o2 as able. not producing sputum to send for cx colace added case management to assist with likely need for home health services, MARE drain management hep sc - dvt ppx f/u labs will d/w
[2017-10-03 09:27] LABS: ABSOLUTE BASOPHIL COUNT 0 /CUMM (0.0-0.2); ABSOLUTE EOSINOPHIL COUNT 0.1 /CUMM (0.0-0.7); ABSOLUTE GRANULOCYTE CT 8.7 /CUMM (1.4-6.5); ABSOLUTE LYMPH COUNT 1.6 /CUMM (1.2-3.4); ABSOLUTE MONOCYTE COUNT 0.8 /CUMM (0.10-0.60); BASOPHIL % 0.3 % (0.0-2.0); EOSINOPHIL % 0.8 % (0-5); GRANULOCYTE % 77.2 % (42.2-75.2); MEAN CORPUSCULAR HGB 27.9 PG (27.0-31.0); MEAN CORPUSCULAR HGB CONC 33.9 G/DL (33.0-37.0); MEAN CORPUSCULAR VOLUME 82.2 FL (81.0-99.0); MEAN PLATELET VOLUME 9.9 FL (7.4-10.4); PLATELET COUNT 259 /CUMM (130-400); RBC DISTRIBUTION WIDTH 12.8 % (11.5-14.5); RED BLOOD CELL CT 4.26 /CUMM (4.20-5.40); WHITE BLOOD CELL COUNT 11.3 /CUMM (4.8-10.8)
--- NOTE | 2017-10-03 09:43 | RADIOLOGY REPORT ---
EXAMINATION: XR PORTABLE CHEST CLINICAL INFORMATION: Atelectasis. Postoperative. Cough and oxygen requirement. COMPARISON: Chest CT 02/13/2015 TECHNIQUE: Portable frontal view of the chest was obtained. FINDINGS: The lungs are hypoinflated and the patient's body habitus further limits evaluation. Curvilinear consolidation of the right mid to upper lung. Left basilar consolidation. Small left pleural effusion. Minimal leftward tracheal deviation at the level of the thoracic inlet. Mild cardiomegaly, likely secondary to hypoinflation and technique. No acute osseous abnormality. IMPRESSION: Hypoinflation of the lungs. Curvilinear opacity of the right mid to upper lung is likely a focus of atelectasis although a superimposed consolidative process is not excluded. Left basilar consolidation with small left pleural effusion. No evidence of pneumothorax.
--- NOTE | 2017-10-03 10:27 | PN- General Surgery ---
Surgical Brief Attending Note Brief Attending Note: DOING WELL. START FULL LIQUID DIET. PAIN CONTROL. WILL D/C HOME WITH DRAINS 1- 2DAYS.
[2017-10-03 14:00] VITALS: BP 114/66
[2017-10-03 15:02] VITALS: BP 114/66
[2017-10-03 22:25] VITALS: BP 120/60
[2017-10-04 07:20] VITALS: BP 120/74
--- NOTE | 2017-10-04 12:48 | PN- General Surgery ---
See Addendum Subjective Subjective: Patient has no major complaints. Her pain is reasonably controlled. She has been out of bed and ambulating independently. She is tolerating a full liquid diet and passing "a lot" of flatus. No bowel movement as of yet. Objective Vital Signs and I&Os Vital Signs Date Time Temp Pulse Resp B/P B/P Pulse O2 O2 Flow FiO2 Mean Ox Delivery Rate 10/04 1323 98.8 71 20 120/74 95 Nasal 3.0L Cannula 10/04 0953 77 120/74 10/04 0952 77 120/74 10/04 0952 77 120/74 10/04 0800 93 Nasal 3.0L Cannula 10/04 0720 98.8 77 20 120/74 93 10/04 0000 Nasal 3.0L Cannula 10/03 2225 98.5 78 19 120/60 93 Nasal Cannula 10/03 2137 78 120/60 Intake & Output 10/04 1600 10/04 0800 10/04 0000 10/03 1600 10/03 0800 10/03 0000 Intake Total 720 352 867 5331 Output Total 600 180 350 90 78 Balance 720 -600 -180 689 605 4299 Intake, IV 400 400 Intake, Oral 720 620 840 Number 0 0 Bowel Movements Output, 180 90 78 Drainage Output, Urine 600 350 Patient 219 lb Weight Physical Exam: Gen.: Patient is awake and alert. No acute distress. Cardiac: Regular Pulmonary: Lungs are clear bilaterally. Abdomen: Midline incision is clean, dry, and intact with gloria in place. JPs contain a large amount of serosanguineous output. (270cc past 24 hours documented). No purulence is noted. Normoactive bowel sounds were heard. Dressings were changed. Extremities: No significant calf tenderness or edema are appreciated. Assessment/Plan Assessment/Plan Pt is a 62-year-old female with a history of hypertension, hyperlipidemia, sleep apnea, history of PE and DVT, diabetes, endometrial cancer, who is now postoperative day #3 status post open repair of recurrent ventral hernia with mesh and component separation. Plan: -Okay to advance to diabetic diet. Patient was encouraged to take it slow. Still awaiting bowel movement. -Pain control with Percocet as needed. -Subcutaneous heparin and Alps for DVT prophylaxis. Continue to encourage ambulation, which patient has been doing. -Regular insulin sliding scale for diabetes management. -Continue MARE drainage of fluid. -Anticipate discharge home hopefully tomorrow if patient has a bowel movement. MARE drains will be left in place upon discharge. Core Measures Venous Thromboembolism VTE Risk Factors VTE (Previous) No Mechanical VTE Prophylaxis d/t N/A MechProphylax Ordered No VTE Pharm Prophylaxis d/t NA PharmProphylax ordered
[2017-10-04 13:23] VITALS: BP 120/74
[2017-10-04] MEDS ORDERED: PERCOCET 5-3251 EACH PO (20:35)
[2017-10-04 23:11] VITALS: BP 147/77
[2017-10-05 07:34] VITALS: BP 136/70
--- NOTE | 2017-10-05 08:55 | PN- General Surgery ---
Subjective Subjective: Awake, alert Ambulating in the room without difficulty Pain is well controlled Tolerating diet without nausea or pain +bm Wants to go home Objective Vital Signs and I&Os Vital Signs Date Time Temp Pulse Resp B/P B/P Pulse O2 O2 Flow FiO2 Mean Ox Delivery Rate 10/05 0734 98.7 62 18 136/70 95 10/04 2311 99.0 79 18 147/77 99 Room Air 10/04 2202 70 122/72 10/04 1323 98.8 71 20 120/74 95 Nasal 3.0L Cannula 10/04 0953 77 120/74 10/04 0952 77 120/74 10/04 0952 77 120/74 Intake & Output 10/05 1600 10/05 0800 10/05 0000 10/04 1600 10/04 0000 Intake Total 350 650 720 Output Total 370 420 600 180 Balance -20 230 720 -600 -180 Intake, Oral 350 650 720 Number 1 0 Bowel Movements Output, 70 120 180 Drainage Output, Urine 300 300 600 Patient 219 lb Weight Physical Exam: vss, afebrile MARE 1 - 60/50cc serosang past 24 hrs MARE 2 - 10/70cc serosang past 24 hrs General: alert and oriented times three, ambulating in room Chest: clear bilaterally, no rales/rhonchi/wheezes, RRR Abd: nondistended, good bs, nontender Ext: warm, no edema Wounds: all look good, midline dressing changed, no erythema or drainage - gloria intact MARE sites are clean and dry, bulbs to self suction Assessment/Plan Assessment/Plan 62yo female pod 4 s/p open ventral hernia repair with mesh, MARE x 2 still draining serosang tolerating diet, +bm Plan to dc home with MARE's Pt is comfortable with MARE emptying/assessment at home Follow up with Dr Adams within one week - pt will call for an appointment Recommend abdominal binder when out of bed Core Measures Venous Thromboembolism VTE Risk Factors VTE (Previous) No Mechanical VTE Prophylaxis d/t N/A MechProphylax Ordered No VTE Pharm Prophylaxis d/t NA PharmProphylax ordered
[2017-10-05 09:36] VITALS: BP 126/60
[2017-10-05 09:49] LABS: ABSOLUTE BASOPHIL COUNT 0 /CUMM (0.0-0.2); ABSOLUTE EOSINOPHIL COUNT 0.3 /CUMM (0.0-0.7); ABSOLUTE GRANULOCYTE CT 6.2 /CUMM (1.4-6.5); ABSOLUTE LYMPH COUNT 2.8 /CUMM (1.2-3.4); ABSOLUTE MONOCYTE COUNT 0.7 /CUMM (0.10-0.60); BASOPHIL % 0.4 % (0.0-2.0); EOSINOPHIL % 2.9 % (0-5); GRANULOCYTE % 61.8 % (42.2-75.2); HEMATOCRIT 35.3 % (37-47); MEAN CORPUSCULAR HGB 27.8 PG (27.0-31.0); MEAN CORPUSCULAR HGB CONC 33.6 G/DL (33.0-37.0); MEAN CORPUSCULAR VOLUME 82.9 FL (81.0-99.0); MEAN PLATELET VOLUME 9.5 FL (7.4-10.4); PLATELET COUNT 289 /CUMM (130-400); RBC DISTRIBUTION WIDTH 13.3 % (11.5-14.5); RED BLOOD CELL CT 4.26 /CUMM (4.20-5.40); WHITE BLOOD CELL COUNT 10.1 /CUMM (4.8-10.8)
--- NOTE | 2017-10-06 13:40 | Surgical Discharge Summary ---
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 Psychosocial History Who Do You Live With? Mother Services at Home: None What is Your Primary Language? Citizen Of [place] ETOH Use: denies use Review of Systems: see preop Hospital Course Course Attending Physician: John Adams MD Primary Care Physician: Yadira Wick MD Allergies: Coded Allergies: NO KNOWN ALLERGIES (10/07/13) Discharge Instructions Medications at Discharge Discharge Medications: Continue taking these medications: Propranolol HCl (Propranolol HCl) 10 MG TABLET 1 Tablet ORAL DAILY Qty = 30 Comments: NOT GIVEN THIS ADMISSION Amlodipine Besylate (Amlodipine Besylate) 10 MG TABLET 1 Tablet ORAL DAILY Qty = 30 Comments: Last Taken:10/05/17 Time:9:35A.M Metformin HCl (Metformin HCl) 1,000 MG TABLET 1 Tablet ORAL TWICE DAILY Qty = 60 Comments: NOT GIVEN THIS ADMISSION Ergocalciferol (Vitamin D2) (Vitamin D2) 50,000 UNIT CAPSULE 1 Capsule ORAL DAILY Qty = 13 Comments: NOT GIVEN THIS ADMISSION Losartan/Hydrochlorothiazide (Losartan-Hctz 100-12.5 MG Tab) 100 MG-12.5 MG TABLET 1 Tablet ORAL DAILY Qty = 30 Comments: Last Taken:10/05/17 Time:9:35A.M Pravastatin Sodium (Pravastatin Sodium) 40 MG TABLET 1 Tablet ORAL DAILY Qty = 30 Comments: Last Taken:10/04/17 Time:5:30P.M Start taking the following new medications: Oxycodone HCl/Acetaminophen (Percocet 5-325 MG Tablet) 5 MG-325 MG TABLET 1-2 Tablet ORAL EVERY 4 HOURS NEEDED as needed for PAIN Qty = 30 No Refills Comments: NOT GIVEN THIS ADMISSION
== END 2017-10-05 12:59 | DRG 355 ==
LOC: ERH 17:55 → ERHI 10-01 00:16 → ENRESERV 10-01 00:38 → 2NB 10-01 01:10 → ENTRNSPT 10-01 20:24 → EDTRNSPTSTS 10-01 20:54 → CMPTRNSPT 10-01 21:10 → 2NB 10-02 08:03 → ENPENDDIS 10-05 08:57 → ENTRNSPT 10-05 12:31 → EDTRNSPTSTS 10-05 12:47 → EDTRNSPT 10-05 12:47 → 2NB 10-05 12:59 → CMPTRNSPT 10-05 13:02
PROVIDERS: Physician Assistant; Physician Assistant Medical; Physician Assistant Surgical
PROC: 0WUF0JZ Supplement Abdominal Wall with Synthetic Substitute, Open Approach (ICD-10-PCS; principal; 2017-10-01)
PROC: 0WJF4ZZ Inspection of Abdominal Wall, Percutaneous Endoscopic Approach (ICD-10-PCS; 2017-10-01)
DX: K43.0 Incisional hernia with obstruction, without gangrene (principal); E11.8 Type 2 diabetes mellitus with unspecified complications; E66.9 Obesity, unspecified; Z68.36 Body mass index [BMI] 36.0-36.9, adult; Z79.84 Long term (current) use of oral hypoglycemic drugs; I10 Essential (primary) hypertension; E78.5 Hyperlipidemia, unspecified; G47.33 Obstructive sleep apnea (adult) (pediatric); Z86.711 Personal history of pulmonary embolism
CPT/HCPCS: 2NBSP; 36415; 71045; 74177; 81003; 82436; 93005; 93010; 97116-GO; 97161-GP; C1781; J0131; J0690; J1644; J1815; J2270; J2405; J2550; J3490; J7042

== ENCOUNTER 2017-10-14 18:16 | Inpatient (IN) | payer OTHER ==
[~2017-10-14] VITALS: Ht 165.1 cm; Wt 98.1 kg
[~2017-10-14 18:16] MED LIST: AMLODIPINE BESY10 M1 PO; LOSARTAN-HCTZ1 EACH PO; METFORMIN HCL1000 M1 PO; PERCOCET 5-3251 EACH PO; PRAVASTATIN SOD40 M2 PO; PROPRANOLOL HCL10 M1 PO; VITAMIN D250000 UNIT PO
[2017-10-14 18:52] LABS: ABSOLUTE BASOPHIL COUNT 0 /CUMM (0.0-0.2); ABSOLUTE EOSINOPHIL COUNT 0.1 /CUMM (0.0-0.7); ABSOLUTE GRANULOCYTE CT 13.1 /CUMM (1.4-6.5); ABSOLUTE LYMPH COUNT 1.2 /CUMM (1.2-3.4); ABSOLUTE MONOCYTE COUNT 0.6 /CUMM (0.10-0.60); BASOPHIL % 0.1 % (0.0-2.0); EOSINOPHIL % 0.7 % (0-5); GRANULOCYTE % 87.1 % (42.2-75.2); HEMATOCRIT 40.1 % (37-47); MEAN CORPUSCULAR HGB 27.2 PG (27.0-31.0); MEAN CORPUSCULAR HGB CONC 33.1 G/DL (33.0-37.0); MEAN PLATELET VOLUME 9.6 FL (7.4-10.4); PLATELET COUNT 289 /CUMM (130-400); RBC DISTRIBUTION WIDTH 13.2 % (11.5-14.5); RED BLOOD CELL CT 4.89 /CUMM (4.20-5.40)
--- NOTE | 2017-10-14 20:41 | ED GENERAL ADULT ---
See Addendum History of Present Illness General Chief Complaint: Fever Stated Complaint: FEVER S/P SURGERY 10/01 Source: patient, family, old records Exam Limitations: no limitations Vital Signs & Intake/Output Vital Signs & Intake/Output Vital Signs Date Time Temp Pulse Resp B/P B/P Pulse O2 O2 Flow FiO2 Mean Ox Delivery Rate 10/15 0138 101.4 10/15 0134 101.4 107 20 140/67 95 Room Air 10/14 2230 100.6 101 20 158/75 95 Room Air 10/14 2035 100.0 100 20 159/79 96 Room Air 10/14 1822 100.1 128 18 136/83 95 Room Air ED Intake and Output 10/15 0000 10/14 1200 Intake Total Output Total Balance Patient 220 lb Weight Weight Reported by Patient Measurement Method Allergies Coded Allergies: NO KNOWN ALLERGIES (10/07/13) Reconcile Medications Amlodipine Besylate 10 MG TABLET 1 TAB PO DAILY HIGH BLOOD PRESSURE (Reported ) Ergocalciferol (Vitamin D2) (Vitamin D2) 50,000 UNIT CAPSULE 1 CAP PO DAILY VITAMIN SUPPORT (Reported) Losartan/Hydrochlorothiazide (Losartan-Hctz 100-12.5 MG Tab) 100 MG-12.5 MG TABLET 1 TAB PO DAILY HIGH BLOOD PRESSURE (Reported) Metformin HCl 1,000 MG TABLET 1 TAB PO BID DIABETES (Reported) Oxycodone HCl/Acetaminophen (Percocet 5-325 MG Tablet) 5 MG-325 MG TABLET 1-2 TAB PO Q4P PRN PAIN Pravastatin Sodium 40 MG TABLET 1 TAB PO DAILY HIGH CHOLESTROL (Reported) Propranolol HCl 10 MG TABLET 1 TAB PO DAILY HIGH BLOOD PRESSURE (Reported) Triage Note: PT TO ER C/C FEVER AND CHILLS X 1 DAY. HAD HERNIA REPAIR 10/[address] REAVES. HAD FOLLOW UP YESTERDAY FOR EVAL; HAS [address] TEMP 100.1 IN TRIAGE. DENIES ABD PAIN. Triage Nurses Notes Reviewed? yes Onset: Abrupt Duration: day(s): (1) Timing: multiple episodes today Injury Environment: home Severity: mild, moderate Associated Symptoms: FEVER, ABBOMINAL PAIN, DISCHARGE AROUND RIGHT DRAIN HPI: This is a 62 year old female s/p ventral abdominal wall hernia repair on 10/[address] reaves presents to the ER today with fever that started today which patient reports tmax 106. She took tylenol at 6 pm. She reports diminshed appetite, pain around her right lower quadrant drain. (Elizabeth Ely MD) Past History Travel History Traveled to [place] past 21 day No Medical History Any Pertinent Medical History? 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 Hx Contributory? No (Elizabeth Ely MD) Review of Systems Review of Systems Constitutional: Reports: fever, malaise. Denies: chills. EENTM: Reports: throat pain. Respiratory: Reports: no symptoms. Cardiovascular: Denies: chest pain, palpitations. GI: Reports: abdominal pain. Denies: diarrhea, nausea, vomiting. Genitourinary: Reports: no symptoms. Musculoskeletal: Reports: no symptoms. Skin: Reports: no symptoms. Neurological/Psychological: Reports: no symptoms. Hematologic/Endocrine: Denies: bruising, bleeding, polyuria, polydipsia. Immunologic/Allergic: Denies: splenectomy. All Other Systems: Reviewed and Negative (Elizabeth Ely MD) Physical Exam Physical Exam General Appearance: well developed/nourished, alert, awake Head: atraumatic, normal appearance Eyes: Bilateral: normal appearance, PERRL, EOMI. Ears, Nose, Throat: normal pharynx, hearing grossly normal Neck: normal inspection, supple, full range of motion Respiratory: normal breath sounds, chest non-tender, no respiratory distress Cardiovascular: regular rate/rhythm, normal peripheral pulses Peripheral Pulses: 2+ radial (R), 2+ radial (L) Gastrointestinal: normal bowel sounds, soft, non-tender Back: normal inspection, normal range of motion Extremities: normal inspection, normal capillary refill, normal range of motion, no edema Neurologic/Psych: no motor/sensory deficits, awake, alert, oriented x 3 Skin: intact, normal color, warm/dry Core Measures ACS in differential dx? No CVA/TIA Diagnosis: No Sepsis Present: No Sepsis Focused Exam Completed? No (Jhoana NARVAEZ,Elizabeth) Progress Differential Diagnoses I considered the following diagnoses in my evaluation of the patient: Plan of Care: Orders Procedure Date/time Status EKG 10/14 2057 Active RAPID VIRAL INFLUENZA A 10/14 2037 Complete BLOOD CULTURE 10/14 2037 Active URINALYSIS 10/14 2037 Complete PARTIAL THROMBOPLASTIN TIME 10/14 2037 Complete PROTHROMBIN TIME 10/14 2037 Complete BLOOD CULTURE 10/14 1822 Active LACTIC ACID 10/14 1822 Complete COMPREHENSIVE METABOLIC PANEL 10/14 1822 Complete CBC WITHOUT DIFFERENTIAL 10/14 1822 Complete Laboratory Tests 10/14/172122: Lactic Acid Cancelled 10/14/172056: PT 12.6 H, INR 1.20 H, APTT 29, Urine Color YEL, Urine Clarity CLEAR, Urine pH 7.0, Ur Specific [place] 1.020, Urine Protein NEG, Urine Ketones NEG, Urine Nitrite NEG, Urine Bilirubin NEG, Urine Urobilinogen 0.2, Ur Leukocyte Esterase NEG, Ur Microscopic EXAM NOT REQUIRED, Urine Hemoglobin NEG, Urine Glucose NEG 10/14/171843: Anion Gap 15, Estimated GFR > 60, BUN/Creatinine Ratio 20.0, Glucose 170 H, Lactic Acid 1.8, Calcium 9.1, Total Bilirubin 0.7, AST 19, ALT 39, Alkaline Phosphatase 179 H, Total Protein 6.9, Albumin 3.9, Globulin 3.0, Albumin/ Globulin Ratio 1.3, CBC w Diff NO MAN DIFF REQ, RBC 4.89, MCV 82.0, MCH 27.2, RDW 13.2, MPV 9.6, Gran % 87.1 H, Lymphocytes % 7.9 L, Monocytes % 4.2, Eosinophils % 0.7, Basophils % 0.1, Absolute Granulocytes 13.1 H, Absolute Lymphocytes 1.2, Absolute Monocytes 0.6, Absolute Eosinophils 0.1, Absolute Basophils 0, PUBS MCHC 33.1 Microbiology 10/14 2120 BLOOD: Blood Culture - RECD 10/14 2045 NASOPHARYN: Influenza Virus A & B Rapid Smear - COMP 10/14 1843 BLOOD: Blood Culture - RECD Diagnostic Imaging: Viewed by Me: CT Scan. Discussed w/RAD: CT Scan. Radiology Impression: PATIENT: JOSH BAKER PRESENT AGE : 62 PATIENT ACCOUNT NO: [id number] : 56 LOCATION: [facility] ORDERING PHYSICIAN: Elizabeth Ely MD SERVICE DATE: 10/14/17 EXAM TYPE: CAT - CT ABD & PELVIS W IV CONTRAST EXAMINATION: CT ABDOMEN AND PELVIS WITH CONTRAST CLINICAL INFORMATION: Right lower quadrant abdominal pain. Infected drain after hernia repair COMPARISON: CT scan abdomen pelvis 09/30/2017 TECHNIQUE: Multidetector volumetric imaging was performed of the abdomen and pelvis following IV administration of 60 mL of Optiray 320 intravenous contrast. Sagittal and coronal reformatted images were obtained on the technologist's workstation. DLP: 1239.29 mGy-cm FINDINGS: LUNG BASES: Linear scarring versus subsegmental atelectasis at lung bases. LIVER, GALLBLADDER, AND BILIARY TREE: The liver is normal in size, shape, and attenuation. No focal hepatic lesion or biliary ductal dilatation is present. Small gallstones within the gallbladder. No edema around the gallbladder. No bile duct dilatation. PANCREAS: Unremarkable. SPLEEN: Unremarkable. ADRENAL GLANDS: Unremarkable. KIDNEYS AND URETERS: The kidneys are normal in size, shape, and attenuation. No hydronephrosis, hydroureter, or calculi seen. No perinephric stranding. BLADDER: Unremarkable. GASTROINTESTINAL TRACT: The small and large bowel are unremarkable. The appendix is nonvisualized. No inflammation of the right lower quadrant mesentery. ABDOMINAL WALL: Postsurgical changes with surgical mesh at the anterior abdominal wall. There is edema around the surgical mesh consistent with history of recent repair to the abdominal wall. Surgical skin clips are present of the midline. There are [address] lying just superficial to the surgical mesh, one on the right and one on the left. There is no abscess or focal fluid collection however. LYMPH NODES: Normal. VASCULAR: Unremarkable. PELVIC VISCERA: Uterus is absent. No adnexal abnormality. OSSEOUS STRUCTURES: Unremarkable. IMPRESSION: 1. Surgical mesh anterior abdominal wall. Surgical drains in place. There is edema around the surgical mesh at the anterior abdominal wall but no abscess or focal fluid collections. No recurrent hernia. 2. Cholelithiasis. 3. Status post hysterectomy. DICTATED BY: Nash Terrazas MD DATE/TIME DICTATED:10/14/172306 VOLLEYBALL COACH:GERMAN DATE/TIME TRANSCRIBED:10/14/172306 CONFIDENTIAL, DO NOT COPY WITHOUT APPROPRIATE AUTHORIZATION. <Electronically signed in Other Vendor System> SIGNED BY: Nash Terrazas MD 10/14/172315 Initial ED EKG: NSR Hand-Off Endorsed To: Ernie Murillo MD Endorsed Time: 2319 Pending: consult (SURGICAL) (Elizabeth Ely MD) Departure Departure Disposition: STILL A PATIENT Condition: Stable Clinical Impression Primary Impression: Abdominal pain Secondary Impressions: Fever Referrals: Yadira Wick MD (PCP/Family) Departure Forms: Customer Survey General Discharge Information (Elizabeth Ely MD) PA/MEDIA ACCOUNT EXECUTIVE Co-Sign Statement Statement: ED Attending supervision documentation- [] I saw and evaluated the patient. I have also reviewed all the pertinent lab results and diagnostic results. I agree with the findings and the plan of care as documented in the PA's/MEDIA ACCOUNT EXECUTIVE's documentation. [x] I have reviewed the ED Record and agree with the PA's/MEDIA ACCOUNT EXECUTIVE's documentation. [] Additions or exceptions (if any) to the PAs/MEDIA ACCOUNT EXECUTIVE's note and plan are summarized below: [] (Lidia NARVAEZ,Ernie Starr) Critical Care Note Critical Care Note Critical Care Time: non-applicable (Elizabeth Ely MD)
[2017-10-14 21:20] LABS: PT 12.6 SEC (9.4-12.5); PTT 29 SEC (25-37)
--- NOTE | 2017-10-14 23:16 | CT SCAN REPORT ---
EXAMINATION: CT ABDOMEN AND PELVIS WITH CONTRAST CLINICAL INFORMATION: Right lower quadrant abdominal pain. Infected drain after hernia repair COMPARISON: CT scan abdomen pelvis 09/30/2017 TECHNIQUE: Multidetector volumetric imaging was performed of the abdomen and pelvis following IV administration of 60 mL of Optiray 320 intravenous contrast. Sagittal and coronal reformatted images were obtained on the technologist's workstation. DLP: 1239.29 mGy-cm FINDINGS: LUNG BASES: Linear scarring versus subsegmental atelectasis at lung bases. LIVER, GALLBLADDER, AND BILIARY TREE: The liver is normal in size, shape, and attenuation. No focal hepatic lesion or biliary ductal dilatation is present. Small gallstones within the gallbladder. No edema around the gallbladder. No bile duct dilatation. PANCREAS: Unremarkable. SPLEEN: Unremarkable. ADRENAL GLANDS: Unremarkable. KIDNEYS AND URETERS: The kidneys are normal in size, shape, and attenuation. No hydronephrosis, hydroureter, or calculi seen. No perinephric stranding. BLADDER: Unremarkable. GASTROINTESTINAL TRACT: The small and large bowel are unremarkable. The appendix is nonvisualized. No inflammation of the right lower quadrant mesentery. ABDOMINAL WALL: Postsurgical changes with surgical mesh at the anterior abdominal wall. There is edema around the surgical mesh consistent with history of recent repair to the abdominal wall. Surgical skin clips are present of the midline. There are [address] lying just superficial to the surgical mesh, one on the right and one on the left. There is no abscess or focal fluid collection however. LYMPH NODES: Normal. VASCULAR: Unremarkable. PELVIC VISCERA: Uterus is absent. No adnexal abnormality. OSSEOUS STRUCTURES: Unremarkable. IMPRESSION: 1. Surgical mesh anterior abdominal wall. Surgical drains in place. There is edema around the surgical mesh at the anterior abdominal wall but no abscess or focal fluid collections. No recurrent hernia. 2. Cholelithiasis. 3. Status post hysterectomy.
--- NOTE | 2017-10-15 04:38 | History & Physical ---
SukhRajinder solorzano 10/15/17 0438: General Information and HPI MD Statement: I have seen and personally examined JOSH BAKER and documented this H&P. The patient is a 62 year old F who presented with a patient stated chief complaint of [fever and abdominal pain ]. Source of Information: patient, old records Exam Limitations: no limitations History of Present Illness: This is a 62-year-old woman presented at the emergency room complaining of dyspnea on exertion. Past medical history: HTN, type 2 diabetes, HLP, DVT and pulmonary embolism after hysterectomy (benign pathology/fibroid) in 2010 [ finished 1 year course of anticoagulation with warfarin]. Patient had an uneventful hernia repair in September 2017 and she was discharged from [facility] surgical service on 10/05/2017 without any postop anticoagulation. According to patient, she has had very limited physical activity/ambulation due to her abdominal pain. On the day of hospitalization, patient suddenly developed the sudden primarily on expiration after climbing 2 flights of stairs. She developed fever of 104, 6 to Tylenol for the fever. The presentation was reminding her of her prior PE, she got worried and decided to come to the emergency room for further evaluation. Otherwise, patient remained asymptomatic. Denies chest pain, palpitation, lightheadedness, dizziness, lightheadedness, swelling of lower extremities, nausea, vomiting, worsening abdominal pain, or increasing drainage of the surgical wounds. In the emergency room vital signs are stable. Patient had considerable Wells score that convinced the physician to transfer the patient to [facility] for CTA. CT reports showed bilateral subsegmental pulmonary artery embolism. Allergies/Medications Allergies: Coded Allergies: NO KNOWN ALLERGIES (10/07/13) Home Med list Amlodipine Besylate 10 MG TABLET 1 TAB PO DAILY HIGH BLOOD PRESSURE (Reported ) Ergocalciferol (Vitamin D2) (Vitamin D2) 50,000 UNIT CAPSULE 1 CAP PO DAILY VITAMIN SUPPORT (Reported) Losartan/Hydrochlorothiazide (Losartan-Hctz 100-12.5 MG Tab) 100 MG-12.5 MG TABLET 1 TAB PO DAILY HIGH BLOOD PRESSURE (Reported) Metformin HCl 1,000 MG TABLET 1 TAB PO BID DIABETES (Reported) Oxycodone HCl/Acetaminophen (Percocet 5-325 MG Tablet) 5 MG-325 MG TABLET 1-2 TAB PO Q4P PRN PAIN Pravastatin Sodium 40 MG TABLET 1 TAB PO DAILY HIGH CHOLESTROL (Reported) Propranolol HCl 10 MG TABLET 1 TAB PO DAILY HIGH BLOOD PRESSURE (Reported) Compliance With Home Meds: FAIR Past History Travel History Traveled to [place] past 21 day No Medical History Neurological: NONE EENT: NONE Cardiovascular: hypertension, hyperlipidemia Respiratory: obstructive sleep apnea, pulmonary embolism Gastrointestinal: NONE Hepatic: NONE Renal: NONE Musculoskeletal: DVT Psychiatric: NONE Endocrine: diabetes Blood Disorders: NONE Cancer(s): 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 Psychosocial History Where do you live? Home Services at Home: None Functional Ability ADLs Independent: dressing, eating, toileting, bathing. Review of Systems Review of Systems Constitutional: Reports: see HPI, fever. Cardiovascular: Reports: no symptoms. Respiratory: Reports: see HPI. GI: Reports: no symptoms. Genitourinary: Reports: no symptoms. Musculoskeletal: Reports: no symptoms. All Other Systems: Reviewed and Negative Exam & Diagnostic Data Last 24 Hrs of Vital Signs/I&O Vital Signs Date Time Temp Pulse Resp B/P B/P Pulse O2 O2 Flow FiO2 Mean Ox Delivery Rate 10/15 0545 Room Air 10/15 0545 98.9 93 20 120/82 95 Room Air 10/15 0454 98.9 91 20 123/69 95 Room Air 10/15 0322 98.8 10/15 0322 98.8 94 20 110/58 95 Room Air 10/15 0138 101.4 10/15 0134 101.4 107 20 140/67 95 Room Air 10/14 2230 100.6 101 20 158/75 95 Room Air 10/14 2035 100.0 100 20 159/79 96 Room Air 10/14 1822 100.1 128 18 136/83 95 Room Air Intake & Output 10/15 1600 10/15 0800 10/15 0000 Intake Total 52 Output Total 460 Balance -408 Intake, IV 52 Output, 60 Drainage Output, Urine 400 Patient 238 lb 220 lb 220 lb Weight Weight Bed scale Reported by Patient Measurement Method Physical Exam General Appearance Alert, Oriented X3, Cooperative, No Acute Distress Skin No Rashes, No Breakdown, abdominal surgical wounds no drainage, no enduration or erythema HEENT Atraumatic, PERRLA, EOMI, Mucous Membr. moist/pink Abdomen abdominal surgical wounds no excess drainage no enduration, no flucuation, no warmth or tenderness Extremities No Edema Body Front and Back (Adult) 1) Surgical wound; sutured No drainage from the suture no fistula No erythema no induration or tenderness to touch no fluctuation Last 24 Hrs of Labs/Tyree: Laboratory Tests 10/15/17 0645: Anion Gap 14, Estimated GFR > 60, BUN/Creatinine Ratio 16.0, Troponin I Pending, Big-B-Hwjoxzsyvqd Pept Pending, CBC w Diff Pending, WBC Pending, RBC Pending, Hgb Pending, Hct Pending, MCV Pending, MCH Pending, RDW Pending, Plt Count Pending, MPV Pending, Gran % Pending, Lymphocytes % Pending, Monocytes % Pending , Eosinophils % Pending, Basophils % Pending, Absolute Granulocytes Pending, Absolute Lymphocytes Pending, Absolute Monocytes Pending, Absolute Eosinophils Pending, Absolute Basophils Pending, PUBS MCHC Pending 10/14/172122: Lactic Acid Cancelled 10/14/172056: PT 12.6 H, INR 1.20 H, APTT 29, Urine Color YEL, Urine Clarity CLEAR, Urine pH 7.0, Ur Specific [place] 1.020, Urine Protein NEG, Urine Ketones NEG, Urine Nitrite NEG, Urine Bilirubin NEG, Urine Urobilinogen 0.2, Ur Leukocyte Esterase NEG, Ur Microscopic EXAM NOT REQUIRED, Urine Hemoglobin NEG, Urine Glucose NEG 10/14/17 1844: Anion Gap 15, Estimated GFR > 60, BUN/Creatinine Ratio 20.0, Glucose 170 H, Lactic Acid 1.8, Calcium 9.1, Total Bilirubin 0.7, AST 19, ALT 39, Alkaline Phosphatase 179 H, Total Protein 6.9, Albumin 3.9, Globulin 3.0, Albumin/ Globulin Ratio 1.3, CBC w Diff NO MAN DIFF REQ, RBC 4.89, MCV 82.0, MCH 27.2, RDW 13.2, MPV 9.6, Gran % 87.1 H, Lymphocytes % 7.9 L, Monocytes % 4.2, Eosinophils % 0.7, Basophils % 0.1, Absolute Granulocytes 13.1 H, Absolute Lymphocytes 1.2, Absolute Monocytes 0.6, Absolute Eosinophils 0.1, Absolute Basophils 0, PUBS MCHC 33.1 Microbiology 10/14 2120 BLOOD: Blood Culture - RECD 10/14 2045 NASOPHARYN: Influenza Virus A & B Rapid Smear - COMP 10/14 1843 BLOOD: Blood Culture - RECD Diagnostic Data EKG Results Normal sinus rate and rhythm no was DC segment change noted [id number] No known right bundle branch block or QRS of MN prolongation Other Results CT scan of the abdominal pelvis: 1. Surgical mesh anterior abdominal wall. Surgical drains in place. There is edema around the surgical mesh at the anterior abdominal wall but no abscess or focal fluid collections. No recurrent hernia. 2. Cholelithiasis. 3. Status post hysterectomy. Assessment/Plan Assessment: This is a 67-year-old woman with past medical history of prior provoked PE and DVT was admitted for another episode of bilateral subsegmental/submassive provoked pulmonary embolism. Pertinent data ProBNP 315 Troponin less than 0.01 PESI score: low risk pulmonary embolism CTA: Bilateral subsegmental pulmonary embolism; images are not available for review List of active problems #1 submassive provoked pulmonary embolism #2 history of hypertension #3 history of diabetes #4 fever without any evidence of active infection was possibly secondary to pulmonary embolism Plan * Admit to telemetry for continuous heart monitoring * Continue IV heparin * According to chest 2017 guidelines after the second incident of pulmonary embolism (regardless of provoked or unprovoked) patient needs lifetime anticoagulation; a minus short conversation with the patient she seems to be resistance to the idea of anticoagulation. Risks and benefits of this plan needs to be discussed in detail with the patient with a morning team * Obtain echo * If patient is agreeable with A/C plan, start either xarelto or eliquis * Continue amlodipine 10 mg by mouth daily * Continue losartan 100 mg daily * Continue hydrochlorothiazide 12.5 mg by mouth daily * Continue Prograf sitting 40 mg by mouth daily * Carbohydrate consistent diet * TIDAC fingersticks * Insulin NovoLog low-dose sliding scale * Watch off antibiotics; if patient spikes fever auditory rates panculture; starts proper antibiotic coverage DVT prophylaxis-heparin drip Pain pathway As Ranked By This Provider Problem List: 1. Fever 2. Pulmonary embolism, bilateral Core Measures/Misc (06/15) Acute Coronary Syndrome ACS Diagnosis: No Congestive Heart Failure Congestive Heart Failure Diagnosis No Cerebrovascular Accident CVA/TIA Diagnosis: No VTE (View Protocol) VTE Risk Factors VTE (Previous) No Mechanical VTE Prophylaxis d/t N/A MechProphylax Ordered No VTE Pharm Prophylaxis d/t NA PharmProphylax ordered Sepsis (View protocol) Sepsis Present: No Resident Review Statement Resident Statement: examined this patient, discussed with internal control specialist, agreed with internal control specialist, discussed with family, reviewed EMR data (avail), discussed with nursing , discussed with case mgmt, reviewed images, amended to note Tali Garcia 10/15/17 0558: Attending MD Review Statement Attending Statement Attending MD Statement: examined this patient, discuss w/resident/PA/ELECTRONIC SCALE ASSEMBLER AND TESTER, agreed w/resident/PA/ELECTRONIC SCALE ASSEMBLER AND TESTER, reviewed EMR data (avail), reviewed images, amended to note Attending Assessment/Plan: CC: Fever, dyspnea on exertion PMH: HTN, history of DVT/PE after hysterectomy, DM Patient came to ER for fever at home associated with chills. She followed up with Dr. Adams yesterday after her recent hernia surgery done on October 01 for ventral abdominal hernia with a small bowel obstruction, according to patient there was some increased discharge noted from her drain. This morning patient noticed shortness of breath more so on walking, she felt the symptoms were similar to her previous pulmonary embolism so she was worried and came to ER. Other than fever, chills, dyspnea on exertion and increased discharge from the MARE drain patient does not have any other complaints like cough with expectoration, bloody sputum, increased leg swelling, chest pain, chest tightness, any urinary symptoms. Vitals: T max 101.4, pulse 128, RR 18, blood pressure 136/83, saturating 95% on room air. On exam: A O 3, cooperative, no acute distress, neck supple, JVD normal, no lymphadenopathy, mucosa moist, no focal neurological deficit, no dependent edema , no obvious skin rashes or inflammation CVS: S1-S2, RRR. RS: Clear to auscultate bilaterally. Abdomen: Soft, tender, 2 MARE drains, suture intact no local discharge, ND, bowel sounds present. Labs: WBC 15.0, hemoglobin 13.3, hematocrit 40.1, platelet 289, neutrophils 87%, BMP unremarkable, glucose 170, lactate 1.8, LFT unremarkable, INR 1.20, UA unremarkable CT abdomen pelvis with IV contrast: 1. Surgical mesh anterior abdominal wall. Surgical drains in place. There is edema around the surgical mesh at the anterior abdominal wall but no abscess or focal fluid collections. No recurrent hernia. 2. Cholelithiasis. 3. Status post hysterectomy. Assessment and plan 62-year-old female came to ER for fever, chills, dyspnea on exertion after her recent hernia surgery for ventral abdominal hernia small bowel obstruction. Patient noticed increased discharge from MARE drain and followed with Dr. Adams yesterday. Because she developed dyspnea on exertion and was worried about pulmonary embolism she came to ER. She was febrile, tachycardic, has 2 MARE drains , suture site intact, chest clear to auscultate. As contrast dispenser was broken in the radiology department, patient was sent to outside facility for CTA chest and was found to have bilateral pulmonary embolism. Tachycardia fever and dyspnea on exertion can be explained by this pulmonary embolism. Menwhile CT abdomen shows minimal edema around surgical mesh, this can be usual postsurgical changes, we will inform surgeon about patient being here and fever. + Post surgery fever + Bilateral pulmonary embolism + History of HTN, DM + Recent hernia surgery - admit to telemetry - Continue heparin drip - Obtain troponin and proBNP - 2-D echocardiogram in a.m. to rule out any cardiac strain - follow-up blood cultures - Surgical consult for any need of antibiotics, hold off antibiotics for now - Continuous telemetry monitoring - Patient was on warfarin in the past when she had provoked VTE after her hysterectomy. Her insurance stopped paying for repeated INR and her co-pay was getting higher so she was changed from warfarin to aspirin. Now she is worried about insurance reimbursement for new anticoagulation, I discussed about warfarin or new or anticoagulants, it needs to be checked with insurance before starting any of these.
[2017-10-15 05:45] VITALS: BP 120/82
--- NOTE | 2017-10-15 05:59 | Cons- General Surgery ---
General Information and HPI Consulting Request Date of Consult: 10/15/17 Requested By: Emergency department, Dr. Ely Reason for Consult: Postoperative fever History of Present Illness: 62-year-old female 2 weeks status post open incarcerated ventral incisional hernia repair with abdominoplasty secondary to small bowel obstruction presents to the emergency department with postoperative fever. She was evaluated by the emergency room staff, CT scan of the abdomen and pelvis was performed which shows small amount of swelling and induration about the mesh, she has a white count of 15,000. We were asked to evaluate her for possible mesh infection as she has complained of fever for 2 days up to 106 orally however, after discussing with patient, likely this is 100.6. She states that she saw Dr. Adams in the office yesterday after the fever started and she was having some drainage from the MARE sites, the sites were cleansed and no significant abdominal infection was noted. She now returns to the ER because she feels worse. She states that she has had a minimal nonproductive cough with mild dyspnea on exertion, she has had normal bowel function, having bowel movements daily, she denies any nausea or vomiting. She denies any redness or drainage about the incision, she does not feel as though the swelling around the incision is worse. She denies any chest pain calf pain or leg pain. The operative her MARE drains have been more serious than sanguinous without any significant purulence and no significant change in the amount, Allergies/Medications Allergies: Coded Allergies: NO KNOWN ALLERGIES (10/07/13) Home Med List: Amlodipine Besylate 10 MG TABLET 1 TAB PO DAILY HIGH BLOOD PRESSURE (Reported ) Ergocalciferol (Vitamin D2) (Vitamin D2) 50,000 UNIT CAPSULE 1 CAP PO DAILY VITAMIN SUPPORT (Reported) Losartan/Hydrochlorothiazide (Losartan-Hctz 100-12.5 MG Tab) 100 MG-12.5 MG TABLET 1 TAB PO DAILY HIGH BLOOD PRESSURE (Reported) Metformin HCl 1,000 MG TABLET 1 TAB PO BID DIABETES (Reported) Oxycodone HCl/Acetaminophen (Percocet 5-325 MG Tablet) 5 MG-325 MG TABLET 1-2 TAB PO Q4P PRN PAIN Pravastatin Sodium 40 MG TABLET 1 TAB PO DAILY HIGH CHOLESTROL (Reported) Propranolol HCl 10 MG TABLET 1 TAB PO DAILY HIGH BLOOD PRESSURE (Reported) Past History Medical History Neurological: NONE EENT: NONE Cardiovascular: hypertension, hyperlipidemia Respiratory: obstructive sleep apnea, pulmonary embolism Gastrointestinal: NONE Hepatic: NONE Renal: NONE Musculoskeletal: DVT Psychiatric: NONE Endocrine: diabetes Blood Disorders: NONE Cancer(s): NONE 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 Psychosocial History Services at Home: None Smoking Status: Never Smoked Functional Ability ADLs Independent: dressing, eating, toileting, bathing. Review of Systems Review of Systems: Review of systems: See HPI, all other systems negative. Constitutional: see hpi HEENT: No visual changes no sore throat no congestion Cardiovascular: No chest pain ,palpitation , orthopnea or ankle swelling Skin: No jaundice no rashes Respiratory: mild cough, No sputum or hemoptysis GI: No nausea no vomiting : No dysuria no hematuria Musclulo skeletal: No back pain no neck pain, Neurologic: No numbness no confusion Psych: No stress anxiety or depression,. Heme/endocrine: No bruising no bleeding no polyuria or polydipsia Immunology: No splenectomy or history of AIDS Exam & Diagnostic Data Vital Signs and I&O Vital Signs Date Time Temp Pulse Resp B/P B/P Pulse O2 O2 Flow FiO2 Mean Ox Delivery Rate 10/15 0545 Room Air 10/15 0545 98.9 93 20 120/82 95 Room Air 10/15 0454 98.9 91 20 123/69 95 Room Air 10/15 0322 98.8 10/15 0322 98.8 94 20 110/58 95 Room Air 10/15 0138 101.4 10/15 0134 101.4 107 20 140/67 95 Room Air 10/14 2230 100.6 101 20 158/75 95 Room Air 10/14 2035 100.0 100 20 159/79 96 Room Air 10/14 1822 100.1 128 18 136/83 95 Room Air Intake & Output 10/15 0800 10/15 0000 10/14 1600 10/14 0810/14 0000 10/13 1600 Intake Total 52 Output Total 460 Balance -408 Intake, IV 52 Output, 60 Drainage Output, Urine 400 Patient 220 lb 220 lb Weight Weight Reported by Patient Measurement Method Physical Exam: Well-developed well-nourished no apparent distress. Mildly pale appearing HEENT: Atraumatic, extraocular motion intact Neck: Supple, no lymphadenopathy Heart: Tachycardic, regular rhythm Respiratory: No respiratory distress, lungs clear to auscultation bilateral Abdomen: Abdomen is mildly distended, well-healing midline surgical incision. MARE drains in place 1 left lower quadrant, 1 right lower quadrant, moderate amount of more serious than sanguinous drainage with small amount of sediment noted, no purulence. Drain sites are clean dry and intact, no signs of infection. There is induration at the lower portion of the incision to deep palpation however there is no significant erythema or induration or warmth or increased tenderness about the incision. No clinical signs of infection. Extremities: No edema, no calf pain Neuro: Alert and oriented x3 Psych: Mood affect normal, normal memory normal judgment. Skin: Trace diaphoretic, no rash on exposed skin Last 24 Hours of Labs: Laboratory Tests 10/14 Chemistry Lactic Acid Cancelled Coagulation PT (9.4 - 12.5 SEC) 12.6 H INR (0.90 - 1.19) 1.20 H APTT (25 - 37 SEC) 29 Urines Urine Color (YEL,AMB,STR) YEL Urine Clarity (CLEAR) CLEAR Urine pH (5.0 - 8.0) 7.0 Ur Specific [place] (1.001 - 1.035) 1.020 Urine Protein (NEG,<30 MG/DL) NEG Urine Ketones (NEG) NEG Urine Nitrite (NEG) NEG Urine Bilirubin (NEG) NEG Urine Urobilinogen (0.1 - 1.0 EU/dl) 0.2 Ur Leukocyte Esterase (NEG) NEG Ur Microscopic EXAM NOT REQUIRED Urine Hemoglobin (NEG) NEG Urine Glucose (N MG/DL) NEG 10/14 1843 Chemistry Sodium (137 - 145 mmol/L) 141 Potassium (3.5 - 5.1 mmol/L) 3.8 Chloride (98 - 107 mmol/L) 104 Carbon Dioxide (22 - 30 mmol/L) 22 Anion Gap (5 - 16) 15 BUN (7 - 17 mg/dL) 10 Creatinine (0.5 - 1.0 mg/dL) 0.5 Estimated GFR (>60 ml/min) > 60 BUN/Creatinine Ratio (7 - 25 %) 20.0 Glucose (65 - 99 mg/dL) 170 H Lactic Acid (0.7 - 2.1 mmol/L) 1.8 Calcium (8.4 - 10.2 mg/dL) 9.1 Total Bilirubin (0.2 - 1.3 mg/dL) 0.7 AST (14 - 36 U/L) 19 ALT (9 - 52 U/L) 39 Alkaline Phosphatase (<127 U/L) 179 H Total Protein (6.3 - 8.2 g/dL) 6.9 Albumin (3.5 - 5.0 g/dL) 3.9 Globulin (1.9 - 4.2 gm/dL) 3.0 Albumin/Globulin Ratio (1.1 - 2.2 %) 1.3 Hematology CBC w Diff NO MAN DIFF REQ WBC (4.8 - 10.8 /CUMM) 15.0 H RBC (4.20 - 5.40 /CUMM) 4.89 Hgb (12.0 - 16.0 G/DL) 13.3 Hct (37 - 47 %) 40.1 MCV (81.0 - 99.0 FL) 82.0 MCH (27.0 - 31.0 PG) 27.2 RDW (11.5 - 14.5 %) 13.2 Plt Count (130 - 400 /CUMM) 289 MPV (7.4 - 10.4 FL) 9.6 Gran % (42.2 - 75.2 %) 87.1 H Lymphocytes % (20.5 - 51.1 %) 7.9 L Monocytes % (1.7 - 9.3 %) 4.2 Eosinophils % (0 - 5 %) 0.7 Basophils % (0.0 - 2.0 %) 0.1 Absolute Granulocytes (1.4 - 6.5 /CUMM) 13.1 H Absolute Lymphocytes (1.2 - 3.4 /CUMM) 1.2 Absolute Monocytes (0.10 - 0.60 /CUMM) 0.6 Absolute Eosinophils (0.0 - 0.7 /CUMM) 0.1 Absolute Basophils (0.0 - 0.2 /CUMM) 0 PUBS MCHC (33.0 - 37.0 G/DL) 33.1 Imaging Results: PATIENT: JOSH BAKER PRESENT AGE: 62 PATIENT ACCOUNT NO: [id number] : 56 LOCATION: [facility] ORDERING PHYSICIAN: Elizabeth Ely MD SERVICE DATE: 10/14/17 EXAM TYPE: CAT - CT ABD & PELVIS W IV CONTRAST EXAMINATION: CT ABDOMEN AND PELVIS WITH CONTRAST CLINICAL INFORMATION: Right lower quadrant abdominal pain. Infected drain after hernia repair COMPARISON: CT scan abdomen pelvis 09/30/2017 TECHNIQUE: Multidetector volumetric imaging was performed of the abdomen and pelvis following IV administration of 60 mL of Optiray 320 intravenous contrast. Sagittal and coronal reformatted images were obtained on the technologist's workstation. DLP: 1239.29 mGy-cm FINDINGS: LUNG BASES: Linear scarring versus subsegmental atelectasis at lung bases. LIVER, GALLBLADDER, AND BILIARY TREE: The liver is normal in size, shape, and attenuation. No focal hepatic lesion or biliary ductal dilatation is present. Small gallstones within the gallbladder. No edema around the gallbladder. No bile duct dilatation. PANCREAS: Unremarkable. SPLEEN: Unremarkable. ADRENAL GLANDS: Unremarkable. KIDNEYS AND URETERS: The kidneys are normal in size, shape, and attenuation. No hydronephrosis, hydroureter, or calculi seen. No perinephric stranding. BLADDER: Unremarkable. GASTROINTESTINAL TRACT: The small and large bowel are unremarkable. The appendix is nonvisualized. No inflammation of the right lower quadrant mesentery. ABDOMINAL WALL: Postsurgical changes with surgical mesh at the anterior abdominal wall. There is edema around the surgical mesh consistent with history of recent repair to the abdominal wall. Surgical skin clips are present of the midline. There are [address] lying just superficial to the surgical mesh, one on the right and one on the left. There is no abscess or focal fluid collection however. LYMPH NODES: Normal. VASCULAR: Unremarkable. PELVIC VISCERA: Uterus is absent. No adnexal abnormality. OSSEOUS STRUCTURES: Unremarkable. IMPRESSION: 1. Surgical mesh anterior abdominal wall. Surgical drains in place. There is edema around the surgical mesh at the anterior abdominal wall but no abscess or focal fluid collections. No recurrent hernia. 2. Cholelithiasis. 3. Status post hysterectomy. DICTATED BY: Nash Terrazas MD DATE/TIME DICTATED:10/14/172306 DEFENSE ATTORNEY:GERMAN DATE/TIME TRANSCRIBED:10/14/172306 Assessment/Plan Assessment/Plan 62-year-old female 2 weeks status post open ventral hernia repair with mesh and abdominal plasty secondary to incarcerated hernia resulting in small bowel obstruction. There are no significant clinical signs of infection of the abdomen or surgical site. I discussed this with the ER attending and recommended a CT angiogram of the chest to evaluate for pulmonary embolism as patient has a heart rate of 130 upon arrival, last heart rate prior to discharge was 62. She has a minimal cough without hemoptysis, she has a history of DVT as well postoperatively after her hysterectomy. There is no contraindication to starting full dose anticoagulation if her PE scan is positive. If she is to be admitted, we will follow her and manage her drains. Discussed with Dr. Adams. she has appt on 10/16 as out pt with Dr Adams. Consult Acknowledgment - Thank you for your consult request.
--- NOTE | 2017-10-15 06:00 | Admission Certification ---
Admission Certification Certification Statement - As attending physician, I certify that at the time of - admission, based on clinical presentation, severity of - symptoms, need for further diagnostic testing and - therapeutic interventions, and risk of adverse outcomes - without in-hospital treatment, in my clinical assessment, - this patient requires an acute hospital stay for a minimum - of two nights or longer. I have also considered psychsocial - factors such as support system, advanced age, financial - issues, cognitive issues, and failed out-patient treatments, - past re-admission history, safety of patient, and lack of - compliance as applicable. Specific rationale supporting this admission is: Bilateral pulmonary embolism
[2017-10-15 08:26] LABS: ABSOLUTE BASOPHIL COUNT 0 /CUMM (0.0-0.2); ABSOLUTE EOSINOPHIL COUNT 0.1 /CUMM (0.0-0.7); ABSOLUTE GRANULOCYTE CT 13.3 /CUMM (1.4-6.5); ABSOLUTE LYMPH COUNT 1.5 /CUMM (1.2-3.4); BASOPHIL % 0 % (0.0-2.0); EOSINOPHIL % 0.3 % (0-5); MEAN CORPUSCULAR HGB 27.6 PG (27.0-31.0); MEAN CORPUSCULAR HGB CONC 33.4 G/DL (33.0-37.0); MEAN CORPUSCULAR VOLUME 82.6 FL (81.0-99.0); MEAN PLATELET VOLUME 10.4 FL (7.4-10.4); PLATELET COUNT 241 /CUMM (130-400); RED BLOOD CELL CT 4.36 /CUMM (4.20-5.40); WHITE BLOOD CELL COUNT 15.8 /CUMM (4.8-10.8)
[2017-10-15 09:11] LABS: GRANULOCYTE % 84.3 % (42.2-75.2)
--- NOTE | 2017-10-15 10:32 | Patient Discharge Instructions ---
Discharge Instructions General Discharge Information You were seen/treated for: Bilateral pulmonary embolism Special Instructions: Please follow-up with your primary care physician in one week of discharge Please follow-up with Dr. Taylor your surg tech next week Please take Lovenox subcutaneously for 2 weeks and then start taking Eliquis 5 mg twice a day from very next day Please take medications as prescribed [place] please follow-up with surgery in 1- 2 weeks of discharge Diet Recommended Diet: Heart Healthy Activity Additional ACTIVITY Info: As tolerated Acute Coronary Syndrome Inclusion Criteria At DC or during hospital stay patient has or had the following: ACS DIAGNOSIS No Discharge Core Measures Meds if any: Prescribed or Continued at Discharge Meds if any: NOT Prescribed or Continued at Discharge Congestive Heart Failure Inclusion Criteria At DC or during hospital stay patient has or had the following: CHF DIAGNOSIS No Discharge Core Measures Meds if any: Prescribed or Continued at Discharge Meds if any: NOT Prescribed or Continued at Discharge Cerebrovascular accident Inclusion Criteria At DC or during hospital stay patient has or had the following: CVA/TIA Diagnosis No Discharge Core Measures Meds if any: Prescribed or Continued at Discharge Meds if any: NOT Prescribed or Continued at Discharge Venous thromboembolism Inclusion Criteria VTE Diagnosis Yes VTE Type Pulmonary Embolism VTE Confirmed by (Test) CT CHEST ANGIOGRAM Discharge Core Measures - Per Current guidelines, there needs to be overlap - treatment for the first 5 days of Warfarin therapy. - If discharged on Warfarin prior to 5 days of - overlap therapy, the patient will need to be - assessed for post discharge needs including - *Post discharge parental anticoagulation - *Warfarin and/or parental anticoagulation education - *Follow up date to check INR post discharge At least 5 days overlap therapy as Inpatient Yes Meds if any: Prescribed or Continued at Discharge Note: Overlap Therapy is Warfarin and Anticoagulant Meds if any: NOT Prescribed or Continued at Discharge
[2017-10-15] MEDS ORDERED: ELIQUIS5 M1 PO ×3 (10:38→10:55)
--- NOTE | 2017-10-15 11:00 | PN- Att Addend ---
Attending Addendum Attending Brief Note Patient seen and examined. She is sitting comfortably in her chair and not in any acute distress. She denies chest pain or palpitations. She denies shortness of breath at rest but does admit to shortness of breath with exertion. She is currently afebrile and hemodynamically stable although she did have T-max of 101.4 earlier on this morning. Vital Signs Date Time Temp Pulse Resp B/P B/P Pulse O2 O2 Flow FiO2 Mean Ox Delivery Rate 10/15 1011 93 120/82 10/15 1010 93 120/82 10/15 0545 Room Air 10/15 0545 98.9 93 20 120/82 95 Room Air 10/15 0454 98.9 91 20 123/69 95 Room Air 10/15 0322 98.8 10/15 0322 98.8 94 20 110/58 95 Room Air 10/15 0138 101.4 10/15 0134 101.4 107 20 140/67 95 Room Air 10/14 2230 100.6 101 20 158/75 95 Room Air 10/14 2035 100.0 100 20 159/79 96 Room Air 10/14 1822 100.1 128 18 136/83 95 Room Air General appearance: Obese, not in acute distress. Heart: S1-S2 regular Lungs: Fair entry bilaterally with no added sounds. Abdomen: Intact surgical dressing in place. [address] with small amount of serosanguineous fluid. No surrounding erythema. No tenderness. Bowel sounds normal. Extremities: No pedal edema. No calf tenderness. Problems: 1. Bilateral pulmonary embolisms. This moody patient's second provoked episode of thromboembolic disease. The first episode 7 years ago did follow surgery. She gives no family history of venous thromboembolism. 2. Fever. 3. 2 weeks postop open repair and abdominoplasty of incarcerated ventral incisional hernia and small bowel obstruction. Currently with [address] 4. Leukocytosis Plan: -Switch anticoagulant therapy from heparin infusion to subcutaneous Lovenox full anticoagulation dose. -While patient has abdominal drains in place will hold off starting patient on oral anticoagulation therapy particularly. Once her drains have been removed with no further plans for any abdominal procedures she may be transitioned to an oral agent at that time. -Her leukocytosis and fever raise concern for an infectious process CT imaging of the chest and abdomen show no acute process. Her urinalysis is negative. She has no rash. She has no diarrhea. These may be a reactive response. Will follow up blood cultures and monitor closely. Hold off antibiotic therapy for now.
--- NOTE | 2017-10-15 13:35 | Cons- Pulmonary ---
General Information and HPI Consulting Request Date of Consult: 10/15/17 Requested By: ed / patient History of Present Illness: This is a 62-year-old woman presented at the emergency room complaining of dyspnea on exertion. Past medical history: HTN, type 2 diabetes, HLP, DVT and pulmonary embolism after hysterectomy (benign pathology/fibroid) in 2013 [ finished 1 year course of anticoagulation with warfarin]. Patient had an uneventful hernia repair in September 2017 and she was discharged from [facility] surgical service on 10/05/2017 without any postop anticoagulation. According to patient, she has had very limited physical activity/ambulation due to her abdominal pain. On the day of hospitalization, patient suddenly developed the sudden primarily on expiration after climbing 2 flights of stairs. She developed fever of 101 . The presentation was reminding her of her prior PE, she got worried and decided to come to the emergency room for further evaluation. Otherwise, patient remained asymptomatic. Denies chest pain, palpitation, lightheadedness, dizziness, lightheadedness, swelling of lower extremities, nausea, vomiting, worsening abdominal pain, or increasing drainage of the surgical wounds. In the emergency room vital signs are stable. Patient had considerable Wells score that convinced the physician to transfer the patient to [facility] for CTA. CT reports showed bilateral subsegmental pulmonary artery embolism. Allergies/Medications Allergies: Coded Allergies: NO KNOWN ALLERGIES (10/07/13) Home Med List: Amlodipine Besylate 10 MG TABLET 1 TAB PO DAILY HIGH BLOOD PRESSURE (Reported ) Apixaban (Eliquis) 5 MG TABLET 1 TAB PO BID PULMONARY EMBOLISM TAKE 2 TAB TWICE A DAY FOR 7 DAYS THEN 1 TAB TWICE A DAY Ergocalciferol (Vitamin D2) (Vitamin D2) 50,000 UNIT CAPSULE 1 CAP PO DAILY VITAMIN SUPPORT (Reported) Losartan/Hydrochlorothiazide (Losartan-Hctz 100-12.5 MG Tab) 100 MG-12.5 MG TABLET 1 TAB PO DAILY HIGH BLOOD PRESSURE (Reported) Metformin HCl 1,000 MG TABLET 1 TAB PO BID DIABETES (Reported) Oxycodone HCl/Acetaminophen (Percocet 5-325 MG Tablet) 5 MG-325 MG TABLET 1-2 TAB PO Q4P PRN PAIN Pravastatin Sodium 40 MG TABLET 1 TAB PO DAILY HIGH CHOLESTROL (Reported) Propranolol HCl 10 MG TABLET 1 TAB PO DAILY HIGH BLOOD PRESSURE (Reported) Review of Systems Review of Systems Constitutional: Reports: see HPI. 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 Psychosocial History Where Do You Live? Home Services at Home: None Smoking Status: Never Smoked Functional Ability ADLs Independent: dressing, eating, toileting, bathing. Exam & Diagnostic Data Last 24 Hrs of Vital Signs/I&O Vital Signs Date Time Temp Pulse Resp B/P B/P Pulse O2 O2 Flow FiO2 Mean Ox Delivery Rate 10/15 1256 103 130/72 10/15 1011 93 120/82 10/15 1010 93 120/82 10/15 0545 Room Air 10/15 0545 98.9 93 20 120/82 95 Room Air 10/15 0454 98.9 91 20 123/69 95 Room Air 10/15 0322 98.8 10/15 0322 98.8 94 20 110/58 95 Room Air 10/15 0138 101.4 10/15 0134 101.4 107 20 140/67 95 Room Air 10/14 2230 100.6 101 20 158/75 95 Room Air 10/14 2035 100.0 100 20 159/79 96 Room Air 10/14 1822 100.1 128 18 136/83 95 Room Air Intake & Output 10/15 1600 10/15 0800 10/15 0000 Intake Total 500 52 Output Total 460 Balance 500 -408 Intake, IV 52 Intake, Oral 500 Number 1 Bowel Movements Output, 60 Drainage Output, Urine 400 Patient 238 lb 220 lb 220 lb Weight Weight Bed scale Reported by Patient Measurement Method Last 48 Hrs of Labs/Tyree: Laboratory Tests 10/15/17 0645: Anion Gap 14, Estimated GFR > 60, BUN/Creatinine Ratio 16.0, Troponin I < 0.01, Igl-L-Qyoclinprha Pept 315 H, CBC w Diff NO MAN DIFF REQ, RBC 4.36, MCV 82.6, MCH 27.6, RDW 13.0, MPV 10.4, Gran % 84.3 H, Lymphocytes % 9.2 L, Monocytes % 6.2, Eosinophils % 0.3, Basophils % 0, Absolute Granulocytes 13.3 H, Absolute Lymphocytes 1.5, Absolute Monocytes 1.0 H, Absolute Eosinophils 0.1, Absolute Basophils 0, PUBS MCHC 33.4 10/14/172122: Lactic Acid Cancelled 10/14/172056: PT 12.6 H, INR 1.20 H, APTT 29, Urine Color YEL, Urine Clarity CLEAR, Urine pH 7.0, Ur Specific [place] 1.020, Urine Protein NEG, Urine Ketones NEG, Urine Nitrite NEG, Urine Bilirubin NEG, Urine Urobilinogen 0.2, Ur Leukocyte Esterase NEG, Ur Microscopic EXAM NOT REQUIRED, Urine Hemoglobin NEG, Urine Glucose NEG 10/14/171843: Anion Gap 15, Estimated GFR > 60, BUN/Creatinine Ratio 20.0, Glucose 170 H, Lactic Acid 1.8, Calcium 9.1, Total Bilirubin 0.7, AST 19, ALT 39, Alkaline Phosphatase 179 H, Total Protein 6.9, Albumin 3.9, Globulin 3.0, Albumin/ Globulin Ratio 1.3, CBC w Diff NO MAN DIFF REQ, RBC 4.89, MCV 82.0, MCH 27.2, RDW 13.2, MPV 9.6, Gran % 87.1 H, Lymphocytes % 7.9 L, Monocytes % 4.2, Eosinophils % 0.7, Basophils % 0.1, Absolute Granulocytes 13.1 H, Absolute Lymphocytes 1.2, Absolute Monocytes 0.6, Absolute Eosinophils 0.1, Absolute Basophils 0, PUBS MCHC 33.1 Microbiology 10/14 2045 NASOPHARYN: Influenza Virus A & B Rapid Smear - COMP Assessment/Plan Impression/Plan: General Appearance Alert, Oriented X3, Cooperative, No Acute Distress Skin No Rashes, No Breakdown, abdominal surgical wounds no drainage, no enduration or erythema HEENT Atraumatic, PERRLA, EOMI, Mucous Membr. moist/pink Abdomen abdominal surgical wounds no excess drainage no enduration, no flucuation, no warmth or tenderness 1) Surgical wound; sutured No drainage from the suture no fistula No erythema no induration or tenderness to touch no fluctuation Extremities No Edema Pt is a 62-year-old female with a history of hypertension, hyperlipidemia, sleep apnea, history of PE and DVT after hysterectomy, diabetes, recent status post open repair of recurrent ventral hernia with mesh and component separation, who still has drains now with * Bilateral Pulm emboli with no sig hemodynamic compromise (recurrent vte, first episode was in 2013 after a hysterctomy) with previous heriditary thrombophilia work up neg * Fever low grade * LIDA on cpap * S/p Post op open repair and abdominoplasty of incarcerated ventral incisional hernia and small bowel obstruction. Currently with [address] * Leukocytosis and no clinical evidence of sig infection * Morbid obesity * Previous small less than 5 mm lung nodule * Previous achalasia now asymptomatic REC * Cont heparin and switch to lovenox 1.5 mg per kg body wt once a day * WIll cont lovenox for one to two weeks and if abd wound heals well will change to po xaralto or eloquis depending on insurance coverage, pt would need 6 months of full anticoa and sub needs lower dose of NOAC indef or a minimum for a yr for her vte * Cont cpap at hs * Lower ext dopplers Will follow Consult Acknowledgment - Thank you for your consult request.
--- NOTE | 2017-10-15 14:02 | PN- General Surgery ---
Surgical Brief Attending Note Brief Attending Note: as PA note. CT abd reviewed. Surgical repair site healing well. Please call when patient is discharged so that gloria and drains can be removed.
[2017-10-15 15:08] VITALS: BP 122/70
[2017-10-15 22:51] VITALS: BP 112/80
[2017-10-16 06:38] VITALS: BP 110/58
[2017-10-16 07:51] VITALS: BP 112/70
--- NOTE | 2017-10-16 07:56 | PN- Housestaff ---
Alexandra Amaya 10/16/17 0756: Subjective Follow-up For: Bilateral pulmonary embolism Complaints: no complaints Subjective: Patient was seen and examined this morning. She was sitting comfortably in bed without complaints. She is stable enough to be discharged home today. Review of Systems Constitutional: Denies: diaphoresis, fever. Cardiovascular: Denies: chest pain, edema. Respiratory: Denies: hemoptysis, orthopnea. Gastrointestinal: Denies: abdominal pain, distention. Genitourinary: Denies: discharge, frequency. Objective Last 24 Hrs of Vital Signs/I&O Vital Signs Date Time Temp Pulse Resp B/P B/P Pulse O2 O2 Flow FiO2 Mean Ox Delivery Rate 10/16 0751 97 112/70 10/16 0750 97 112/70 10/16 0750 97 11270 10/16 0748 99.8 10/16 0646 99.6 10/16 0638 99.6 97 20 110/58 93 Nasal Cannula 10/16 0200 Nasal 1.0L Cannula 10/15 2332 99.4 89 18 92 Nasal 1.0L Cannula 10/15 2251 82 112/80 10/15 1628 98.2 10/15 1600 92 Nasal 1.0L Cannula 10/15 1529 100.2 10/15 1508 100.2 102 20 122/70 92 Nasal 1.0L Cannula Intake & Output 10/16 1600 10/16 0800 10/16 0000 Intake Total 600 110 650 Output Total 55 60 Balance 600 55 590 Intake, IV 10 Intake, Oral 600 100 650 Number 1 Bowel Movements Output, 55 60 Drainage Patient 216 lb Weight Weight Chair scale Measurement Method Physical Exam General Appearance: Alert, Oriented X3, Cooperative, No Acute Distress Cardiovascular: Regular Rate, Normal S1, Normal S2 Lungs: Normal Air Movement Extremities: No Clubbing, No Cyanosis, No Edema Current Medications: Current Medications Sig/Jasmin Start time Last Medication Dose Route Stop Time Status Admin Acetaminophen 650 MG Q6-PRN PRN 10/15 1430 AC 10/16 PO 0646 Amlodipine Besylate 10 MG DAILY 10/15 1000 AC 10/16 PO 0751 Enoxaparin Sodium 160 MG DAILY 10/15 1000 AC 10/16 SC 0750 Hydrochlorothiazide 12.5 MG DAILY 10/15 1000 AC 10/16 PO 0750 Insulin Aspart 0 TIDAC 10/15 1200 AC 10/16 SC 0749 Losartan Potassium 100 MG DAILY 10/15 1000 AC 10/16 PO 0750 Patient Medication 1 ED ONE ONE 10/16 1145 DC 10/16 Teaching ED 10/16 1146 1157 Pravastatin Sodium 40 MG 1700 10/15 1700 AC 10/15 PO 1725 Propranolol HCl 10 MG DAILY 10/15 1132 AC 10/16 PO 0750 Last 24 Hrs of Lab/Tyree Results Last 24 Hrs of Labs/Mics: Laboratory Tests 10/16/17 0615: Anion Gap 13, Estimated GFR > 60, BUN/Creatinine Ratio 20.0, CBC w Diff NO MAN DIFF REQ, RBC 4.22, MCV 82.9, MCH 27.5, RDW 13.1, MPV 9.9, Gran % 80.9 H, Lymphocytes % 12.8 L, Monocytes % 5.5, Eosinophils % 0.6, Basophils % 0.2, Absolute Granulocytes 12.5 H, Absolute Lymphocytes 2.0, Absolute Monocytes 0.9 H, Absolute Eosinophils 0.1, Absolute Basophils 0, PUBS MCHC 33.2 Assessment/Plan Assessment: 62-year-old female came to ER for fever, chills, dyspnea on exertion after her recent hernia surgery for ventral abdominal hernia small bowel obstruction. Patient noticed increased discharge from MARE drain and followed with Dr. Adams yesterday. Because she developed dyspnea on exertion and was worried about pulmonary embolism she came to ER. She was febrile, tachycardic, has 2 MARE drains , suture site intact, chest clear to auscultate. As contrast dispenser was broken in the radiology department, patient was sent to outside facility for CTA chest and was found to have bilateral pulmonary embolism. Tachycardia fever and dyspnea on exertion can be explained by this pulmonary embolism. Menwhile CT abdomen shows minimal edema around surgical mesh, this can be usual postsurgical changes, we will inform surgeon about patient being here and fever. Problem #1 Bilateral pulmonary embolism She was initially started on IV heparin which was later on changed for close Lovenox. Pulmonology evaluation was appreciated. We will continue Lovenox for 2 weeks and then patient will be started taking Eliquis 5 mg twice a day. She will follow-up with Dr. Taylor in one week. She has slight low-grade temperature which most likely due to her pulmonary embolism. Her white cell count remained stable But was elevated to 15.5. Patient is asymptomatic and stable enough to discharge home. Problem #2 Recent hernia surgery Patient was taken care by surgical team. Her drains and gloria were taken out. She will follow-up with surgery in a week . Chronic problems History of HTN, DM Patient was continued on her home medications and we will resume on discharge. Problem List: 1. Pulmonary embolism, bilateral Pain Ratin Pain Location: Not applicable Pain Goal: Remain pain free Pain Plan: Tylenol Tomorrow's Labs & Rationales: None Gabriele Irizarry MD 10/16/17 1052: Attending MD Review Statement Attending Statement Attending MD Statement: examined this patient, discuss w/resident/PA/SENIOR NETWORK SYSTEMS ENGINEER, agreed w/resident/PA/SENIOR NETWORK SYSTEMS ENGINEER, reviewed EMR data (avail), discussed with nursing, discussed with case mgmt, amended to note Attending Assessment/Plan: Patient seen and examined. Resting comfortably not in any acute distress. No issues overnight. She denies chest pain or shortness of breath. Denies palpitations. She has been ambulating freely around the room with no complaints. She is not requiring oxygen supplementation. She denies any lower extremity swelling or pain at rest or with ambulation. On examination she has good entry bilateral lungs are clear to auscultation. She has no peripheral edema. She has no calf tenderness. Distal pulses are intact. Her 2 MARE drains remain in place with output of 1 90 cc yesterday and 55 cc today. The drains were removed today by the surgical service. The drains were removed today by the surgical service. Recommendations: -Case discussed with the patient's soap slabber Dr. Taylor. She'll be discharged on Lovenox to continue for the next 2 weeks. If she doesn't require any further surgical intervention she will be transitioned to Eliquis. -She currently denies any leg pain. She has no leg swelling on examination. She is already receiving full dose anticoagulation therapy. -She is medically stable to be discharged today.
[2017-10-16 08:13] LABS: ABSOLUTE BASOPHIL COUNT 0 /CUMM (0.0-0.2); ABSOLUTE EOSINOPHIL COUNT 0.1 /CUMM (0.0-0.7); ABSOLUTE GRANULOCYTE CT 12.5 /CUMM (1.4-6.5); ABSOLUTE MONOCYTE COUNT 0.9 /CUMM (0.10-0.60); BASOPHIL % 0.2 % (0.0-2.0); EOSINOPHIL % 0.6 % (0-5); GRANULOCYTE % 80.9 % (42.2-75.2); MEAN CORPUSCULAR HGB 27.5 PG (27.0-31.0); MEAN CORPUSCULAR HGB CONC 33.2 G/DL (33.0-37.0); MEAN CORPUSCULAR VOLUME 82.9 FL (81.0-99.0); MEAN PLATELET VOLUME 9.9 FL (7.4-10.4); PLATELET COUNT 275 /CUMM (130-400); RBC DISTRIBUTION WIDTH 13.1 % (11.5-14.5); RED BLOOD CELL CT 4.22 /CUMM (4.20-5.40); WHITE BLOOD CELL COUNT 15.5 /CUMM (4.8-10.8)
--- NOTE | 2017-10-16 09:24 | PN- Pulmonary ---
Subjective HPI/Critical Care Issues: Low grade temp noted Objective Current Medications: Current Medications Sig/Jasmin Start time Last Medication Dose Route Stop Time Status Admin Acetaminophen 650 MG Q6-PRN PRN 10/15 1430 AC 10/16 PO 0646 Amlodipine Besylate 10 MG DAILY 10/15 1000 AC 10/16 PO 0751 Enoxaparin Sodium 160 MG DAILY 10/15 1000 AC 10/16 SC 0750 Heparin Sodium 25,000 UNIT Q24H 10/15 0345 DC 10/15 (Porcine) IV 0400 Sodium Chloride 500 ML Hydrochlorothiazide 12.5 MG DAILY 10/15 1000 AC 10/16 PO 0750 Insulin Aspart 0 TIDAC 10/15 1200 AC 10/16 SC 0749 Losartan Potassium 100 MG DAILY 10/15 1000 AC 10/16 PO 0750 Pravastatin Sodium 40 MG 1700 10/15 1700 AC 10/15 PO 1725 Propranolol HCl 10 MG DAILY 10/15 1132 AC 10/16 PO 0750 Vital Signs & I&O Last 24 Hrs of Vitals and I&O: Vital Signs Date Time Temp Pulse Resp B/P B/P Pulse O2 O2 Flow FiO2 Mean Ox Delivery Rate 10/16 0751 97 112/70 10/16 0750 97 112/70 10/16 0750 97 112/70 10/16 0748 99.8 10/16 0646 99.6 10/16 0638 99.6 97 20 110/58 93 Nasal Cannula 10/16 0200 Nasal 1.0L Cannula 10/15 2332 99.4 89 18 92 Nasal 1.0L Cannula 10/15 2251 82 112/80 10/15 1628 98.2 10/15 1600 92 Nasal 1.0L Cannula 10/15 1529 100.2 10/15 1508 100.2 102 20 122/70 92 Nasal 1.0L Cannula 10/15 1256 103 130/72 10/15 1011 93 120/82 10/15 1010 93 120/82 Intake & Output 10/16 1600 10/16 0800 10/16 0000 Intake Total 110 650 Output Total 55 60 Balance 55 590 Intake, IV 10 Intake, Oral 100 650 Output, 55 60 Drainage Patient 216 lb Weight Weight Chair scale Measurement Method Impression/Plan Impression/Plan Impression/Plan: General Appearance Alert, Oriented X3, Cooperative, No Acute Distress Skin No Rashes, No Breakdown, abdominal surgical wounds no drainage, no enduration or erythema HEENT Atraumatic, PERRLA, EOMI, Mucous Membr. moist/pink Abdomen abdominal surgical wounds no excess drainage no enduration, no flucuation, no warmth or tenderness 1) Surgical wound; sutured No drainage from the suture no fistula No erythema no induration or tenderness to touch no fluctuation Extremities No Edema Pt is a 62-year-old female with a history of hypertension, hyperlipidemia, sleep apnea, history of PE and DVT after hysterectomy, diabetes, recent status post open repair of recurrent ventral hernia with mesh and component separation, who still has drains now with * Bilateral Pulm emboli with no sig hemodynamic compromise (recurrent vte, first episode was in 2013 after a hysterctomy) with previous heriditary thrombophilia work up neg * Fever low grade * LIDA on cpap * S/p Post op open repair and abdominoplasty of incarcerated ventral incisional hernia and small bowel obstruction. Currently with [address] * Leukocytosis and no clinical evidence of sig infection * Morbid obesity * Previous small less than 5 mm lung nodule * Previous achalasia now asymptomatic REC * Lovenox 1.5 mg per kg body wt once a day * WIll cont lovenox for one to two weeks and if abd wound heals well will change to po xaralto or eloquis depending on insurance coverage, pt would need 6 months of full anticoa and sub needs lower dose of NOAC indef or a minimum for a yr for her vte * Cont cpap at hs * Lower ext dopplers * Wean oxygen * Pt should be dcd with 10 days of lovenox and she should see me next week in my office and will decide about the choice of noac Will follow
[2017-10-16] MEDS ORDERED: ELIQUIS5 M1 PO (11:16)
[2017-10-16] MEDS ORDERED: LOVENOX80 MG/0.1 SC (11:16)
--- NOTE | 2017-10-16 11:43 | PN- General Surgery ---
Subjective Subjective: ABD: comfortable, no new issues. no nv, no worsening pain. Objective Vital Signs and I&Os Vital Signs Date Time Temp Pulse Resp B/P B/P Pulse O2 O2 Flow FiO2 Mean Ox Delivery Rate 10/16 0751 97 112/70 10/16 0750 97 112/70 10/16 0750 97 112/70 10/16 0748 99.8 10/16 0646 99.6 10/16 0638 99.6 97 20 110/58 93 Nasal Cannula 10/16 0200 Nasal 1.0L Cannula 10/15 2332 99.4 89 18 92 Nasal 1.0L Cannula 10/15 2251 82 112/80 10/15 1628 98.2 10/15 1600 92 Nasal 1.0L Cannula 10/15 1529 100.2 10/15 1508 100.2 102 20 122/70 92 Nasal 1.0L Cannula 10/15 1256 103 130/72 Intake & Output 10/16 1600 10/16 0800 10/16 0000 10/15 1600 10/15 0800 10/15 0000 Intake Total 110 650 500 52 Output Total 55 60 70 460 Balance 55 590 430 -408 Intake, IV 10 52 Intake, Oral 100 650 500 Number 1 Bowel Movements Output, 55 60 70 60 Drainage Output, Urine 400 Patient 216 lb 238 lb 220 lb 220 lb Weight Weight Chair scale Bed scale Reported by Patient Measurement Method Physical Exam: wdwn aox3, nad abd- healed midline insicion, mild inferior induration to deep palp, no collection, no infeciton. + bs. drain sites clear. gloria removed and both drains pulled without incident. Assessment/Plan Assessment/Plan drains pulled, gloria removed. follow up in [address] reaves as out pt. band aids to drain sites. may shower, no bath.
--- NOTE | 2017-10-16 13:02 | ECHOCARDIOGRAM REPORT ---
JOSH BAKER Age: 62 : 1955 Gender: F Exam Date: 10/15/2017 14:54 Exam Location: [address] Ht (in): 65 Wt (lb): 220 BSA: 2.18 BP: 120 / 82 Ordering Physician: Rajinder Kc MD Referring Physician: Rajinder Kc MD Technologist: Carolina Groves RDCS Room Number: 171 Indications: ACUTE PULMONARY EMBOLISM Rhythm: Sinus Technical Quality: Technically difficult study FINDINGS Left Ventricle Normal size left ventricle. Mild concentric left ventricular hypertrophy. Normal left ventricular ejection fraction visually estimated at >60%. Normal left ventricular wall motion. Right Ventricle Normal right ventricular size and function. Right Atrium Normal right atrial size. Left Atrium Normal left atrial size. Mitral Valve Mild mitral annular calcification. Trace mitral regurgitation. Aortic Valve Mildly thickened aortic valve. No aortic regurgitation. Mild aortic stenosis. Tricuspid Valve Tricuspid valve not well visualized, grossly normal. Mild tricuspid regurgitation. Right ventricular systolic pressure estimated to be elevated at 55 mmHg. Pulmonic Valve Pulmonic valve not well visualized, grossly normal. Pericardium No pericardial effusion. Great Vessels Normal size aortic root. CONCLUSIONS Normal size left ventricle. Mild concentric left ventricular hypertrophy. Normal left ventricular ejection fraction visually estimated at > 60%. Trace mitral regurgitation. Mild aortic stenosis. Mild tricuspid regurgitation. Right ventricular systolic pressure estimated to be elevated at 55 mmHg. Nick Palmer M.D. (Electronically Signed) Final Date: 16 October 2017 13:01 MEASUREMENTS (Male / Female) Normal Values 2D ECHO LV Diastolic Diameter PLAX 4.1 cm 4.2 - 5.9 / 3.9 - 5.3 cm LV Systolic Diameter PLAX 2.2 cm 2.1 - 4.0 cm LV Fractional Shortening PLAX 46.3 % 25 - 46 % LV Ejection Fraction 2D Teich 78.2 % IVS Diastolic Thickness 1.2 cm LVPW Diastolic Thickness 1.2 cm LV Relative Wall Thickness 0.6 RV Internal Dim ED PLAX 3.4 cm 1.9 - 3.8 cm LVOT Diameter 2.2 cm Aortic Root Diameter 2.9 cm LA Systolic Diameter LX 3.2 cm 3.0 - 4.0 / 2.7 - 3.8 cm LA Volume 31.0 cm 18 - 58 / 22 - 52 cm Ascending Aorta Diameter 3.5 cm DOPPLER AV Peak Velocity 253.0 cm/s AV Peak Gradient 25.6 mmHg AV Mean Velocity 185.0 cm/s AV Mean Gradient 16.0 mmHg AV Velocity Time Integral 43.9 cm LVOT Peak Velocity 138.0 cm/s LVOT Peak Gradient 7.6 mmHg LVOT Mean Velocity 86.7 cm/s LVOT Mean Gradient 4.0 mmHg LVOT Velocity Time Integral 23.2 cm LVOT Stroke Volume 88.2 cm AV Area Cont Eq vti 2.0 cm AV Area Cont Eq pk 2.1 cm MV Peak Velocity 108.0 cm/s MV Peak Gradient 4.7 mmHg MV Mean Velocity 68.2 cm/s MV Mean Gradient 2.0 mmHg Mitral E Point Velocity 75.5 cm/s Mitral A Point Velocity 81.9 cm/s Mitral E to A Ratio 0.9 MV PHT Velocity 98.2 cm/s MV Deceleration [place] 580.0 cm/s MV Pressure Half Time 50.8 ms MV Area PHT 4.3 cm MV Deceleration Time 283.0 ms TR Peak Velocity 352.0 cm/s TR Peak Gradient 49.6 mmHg Right Atrial Pressure 5.0 mmHg Pulmonary Artery Systolic Pressu 54.6 mmHg Right Ventricular Systolic Press 54.6 mmHg PV Peak Velocity 112.0 cm/s PV Peak Gradient 5.0 mmHg PV Mean Velocity 66.0 cm/s PV Mean Gradient 2.0 mmHg PV Velocity Time Integral 17.9 cm LV E' Lateral Velocity 13.0 cm/s Mitral E to LV E' Lateral Ratio 5.8 LV E' Septal Velocity 7.8 cm/s Mitral E to LV E' Septal Ratio 9.7
--- NOTE | 2017-10-16 13:43 | Discharge Summary ---
Visit Information Visit Dates Admission Date: 10/15/17 Discharge Date: 10/16/17 Hospital Course Course Attending Physician: Gabriele Irizarry MD Primary Care Physician: Yadira Wick MD Consulting Request: Consulting Specialty: Pulmonary Disease Consulting Physician: Jared Taylor MD Reason for Consult: bilateral pulmonary embolism Hospital Course: Patient is 62-year-old female with past medical history significant for hypertension, diabetes, dyslipidemia, DVT and pulmonary embolism in 2010, recent surgery for hernia repair came in with worsening shortness of breath. And found to have bilateral pulmonary embolism. Patient was admitted on telemetry floor and following issues were addressed Problem #1 bilateral pulmonary embolism She was initially started on IV heparin which was transitioned to full dose Lovenox. According to pulmonary recommendation she would receive 2 weeks of Lovenox subcutaneous and then would start taking Eliquis 5 mg twice a day daily. Patient was instructed to follow-up with Dr. Taylor in a week. Problem #2 low-grade fever with elevated WBC count which was stable during hospital stay Patient remain asymptomatic and her low-grade temp and elevated WBC count which is stable at 15 could be due to underlying PE/reactive due to recent surgery. She would follow-up with primary care physician for follow-up. Problem #3 recent hernia surgery Patient was taken care by surgical team and on discharge day her gloria and drain were removed. Patient was instructed to follow-up with surgery in a week Chronic problems history of hypertension and dyslipidemia Patient was continued on home medications and we resumed her medications on discharge. Complications: None Allergies: Coded Allergies: NO KNOWN ALLERGIES (10/07/13) Significant Procedures: JOSH BAKER Age: 62 : 1955 Gender: F Exam Date: 10/15/2017 14:54 Exam Location: [address] [place] [address] Ht (in): 65 Wt (lb): 220 BSA: 2.18 BP: 120 / 82 Ordering Physician: Rajinder Kc MD Referring Physician: Rajinder Kc MD Technologist: Carolina Groves ZULEIMA Room Number: [id number] Indications: ACUTE PULMONARY EMBOLISM Rhythm: Sinus Technical Quality: Technically difficult study FINDINGS Left Ventricle Normal size left ventricle. Mild concentric left ventricular hypertrophy. Normal left ventricular ejection fraction visually estimated at >60%. Normal left ventricular wall motion. Right Ventricle Normal right ventricular size and function. Right Atrium Normal right atrial size. Left Atrium Normal left atrial size. Mitral Valve Mild mitral annular calcification. Trace mitral regurgitation. Aortic Valve Mildly thickened aortic valve. No aortic regurgitation. Mild aortic stenosis. Tricuspid Valve Tricuspid valve not well visualized, grossly normal. Mild tricuspid regurgitation. Right ventricular systolic pressure estimated to be elevated at 55 mmHg. Pulmonic Valve Pulmonic valve not well visualized, grossly normal. Pericardium No pericardial effusion. Great Vessels Normal size aortic root. CONCLUSIONS Normal size left ventricle. Mild concentric left ventricular hypertrophy. Normal left ventricular ejection fraction visually estimated at > 60%. Trace mitral regurgitation. Mild aortic stenosis. Mild tricuspid regurgitation. Right ventricular systolic pressure estimated to be elevated at 55 mmHg. Nick Palmer M.D. (Electronically Signed) Final Date: 16 October 2017 13:01 MEASUREMENTS (Male / Female) Normal Values 2D ECHO LV Diastolic Diameter PLAX 4.1 cm 4.2 - 5.9 / 3.9 - 5.3 cm LV Systolic Diameter PLAX 2.2 cm 2.1 - 4.0 cm LV Fractional Shortening PLAX 46.3 % 25 - 46 % LV Ejection Fraction 2D Teich 78.2 % IVS Diastolic Thickness 1.2 cm LVPW Diastolic Thickness 1.2 cm LV Relative Wall Thickness 0.6 RV Internal Dim ED PLAX 3.4 cm 1.9 - 3.8 cm LVOT Diameter 2.2 cm Aortic Root Diameter 2.9 cm LA Systolic Diameter LX 3.2 cm 3.0 - 4.0 / 2.7 - 3.8 cm LA Volume 31.0 cm 18 - 58 / 22 - 52 cm Ascending Aorta Diameter 3.5 cm DOPPLER AV Peak Velocity 253.0 cm/s AV Peak Gradient 25.6 mmHg AV Mean Velocity 185.0 cm/s AV Mean Gradient 16.0 mmHg AV Velocity Time Integral 43.9 cm LVOT Peak Velocity 138.0 cm/s LVOT Peak Gradient 7.6 mmHg LVOT Mean Velocity 86.7 cm/s LVOT Mean Gradient 4.0 mmHg LVOT Velocity Time Integral 23.2 cm LVOT Stroke Volume 88.2 cm AV Area Cont Eq vti 2.0 cm AV Area Cont Eq pk 2.1 cm MV Peak Velocity 108.0 cm/s MV Peak Gradient 4.7 mmHg MV Mean Velocity 68.2 cm/s MV Mean Gradient 2.0 mmHg Mitral E Point Velocity 75.5 cm/s Mitral A Point Velocity 81.9 cm/s Mitral E to A Ratio 0.9 MV PHT Velocity 98.2 cm/s MV Deceleration [place] 580.0 cm/s MV Pressure Half Time 50.8 ms MV Area PHT 4.3 cm MV Deceleration Time 283.0 ms TR Peak Velocity 352.0 cm/s TR Peak Gradient 49.6 mmHg Right Atrial Pressure 5.0 mmHg Pulmonary Artery Systolic Pressu 54.6 mmHg Right Ventricular Systolic Press 54.6 mmHg PV Peak Velocity 112.0 cm/s PV Peak Gradient 5.0 mmHg PV Mean Velocity 66.0 cm/s PV Mean Gradient 2.0 mmHg PV Velocity Time Integral 17.9 cm LV E' Lateral Velocity 13.0 cm/s Mitral E to LV E' Lateral Ratio 5.8 LV E' Septal Velocity 7.8 cm/s Mitral E to LV E' Septal Ratio 9.7 DICTATED BY: Nick Palmer MD DATE/TIME DICTATED:10/16/171300 MED AIDE:GERMAN DATE/TIME TRANSCRIBED:10/16/171300 Disposition Summary Disposition Principal Diagnosis: Bilateral pulmonary embolism Additional Diagnosis: Hypertension Discharge Disposition: home or self care Discharge Instructions General Discharge Information Code Status: Full Code Patient's Diet: Heart healthy diet Patient's Activity: As tolerated Follow-Up Instructions/Appts: Please follow-up with your primary care physician in one week of discharge Please follow-up with Dr. Taylor your negative restorer next week Please take Lovenox subcutaneously for 2 weeks and then start taking Eliquis 5 mg twice a day from very next day Please take medications as prescribed [place] please follow-up with surgery in 1- 2 weeks of discharge Medications at Discharge Discharge Medications: Continue taking these medications: Propranolol HCl (Propranolol HCl) 10 MG TABLET 1 Tablet ORAL DAILY Qty = 30 Comments: Last Taken: 10/16/17 Time: 0750 Amlodipine Besylate (Amlodipine Besylate) 10 MG TABLET 1 Tablet ORAL DAILY Qty = 30 Comments: Last Taken: 10/16/17 Time: 0751 Metformin HCl (Metformin HCl) 1,000 MG TABLET 1 Tablet ORAL TWICE DAILY Qty = 60 Comments: NOT GIVEN THIS ADMISSION Ergocalciferol (Vitamin D2) (Vitamin D2) 50,000 UNIT CAPSULE 1 Capsule ORAL DAILY Qty = 13 Comments: NOT GIVEN THIS ADMISSION Losartan/Hydrochlorothiazide (Losartan-Hctz 100-12.5 MG Tab) 100 MG-12.5 MG TABLET 1 Tablet ORAL DAILY Qty = 30 Comments: Last Taken:10/16/17 Time: 0750 Pravastatin Sodium (Pravastatin Sodium) 40 MG TABLET 1 Tablet ORAL DAILY Qty = 30 Comments: Last Taken:10/15/17 Time: 1725 Oxycodone HCl/Acetaminophen (Percocet 5-325 MG Tablet) 5 MG-325 MG TABLET 1-2 Tablet ORAL EVERY 4 HOURS NEEDED as needed for PAIN Qty = 30 Comments: NOT GIVEN THIS ADMISSION Start taking the following new medications: Enoxaparin Sodium (Lovenox) 80 MG/0.8 ML SYRINGE 160 Milligram Inject into fatty tissue DAILY Qty = 13 No Refills Instructions: TAKE FOR 2 WEEKS AND THEN START TAKING ELIQUIS 5 MG BID Comments: Last Taken: 10/16/17 Time: 0750 Apixaban (Eliquis) 5 MG TABLET 1 Tablet ORAL TWICE DAILY Qty = 60 No Refills Instructions: PLZ START TAKING FROM 10/30/17 Comments: NOT GIVEN IN HOSPITAL Copies To: Delano NARVAEZ,Yadira Attending MD Review Statement Documenting Attending: Gabriele Irizarry MD Other Findings: Discharged in stable condition.
== END 2017-10-16 14:33 | DRG 301 ==
LOC: ERH 18:16 → 1NO 10-15 04:04 → ERHI 10-15 04:04 → ENRESERV 10-15 04:52 → 1NO 10-15 05:23 → ENPENDDIS 10-16 11:28 → ENTRNSPT 10-16 14:13 → EDTRNSPTSTS 10-16 14:24 → EDTRNSPT 10-16 14:24 → 1NO 10-16 14:33 → CMPTRNSPT 10-16 14:45
PROVIDERS: Emergency Medicine; Internal Medicine; Student in an Organized Health Care Education/Training Program
DX: T81.718A Complication of other artery following a procedure, not elsewhere classified, initial encounter (principal); E66.01 Morbid (severe) obesity due to excess calories; E11.9 Type 2 diabetes mellitus without complications; G47.33 Obstructive sleep apnea (adult) (pediatric); Z79.84 Long term (current) use of oral hypoglycemic drugs; I10 Essential (primary) hypertension; E78.5 Hyperlipidemia, unspecified; Z86.718 Personal history of other venous thrombosis and embolism; R91.1 Solitary pulmonary nodule; Y83.8 Other surgical procedures as the cause of abnormal reaction of the patient, or of later complication, without mention of misadventure at the time of the procedure
CPT/HCPCS: 1NP; 36415; 74177; 81003; 82436; 87040; 87804; 87804-59; 93005; 93010; 93306; 96361; 96374; 96375; 99291; J0131; J1644; J1650; J3490

== ENCOUNTER 2017-10-24 15:13 | Inpatient (IN) | payer OTHER ==
[~2017-10-24] VITALS: Ht 165.1 cm; Wt 95.3 kg
--- NOTE | 2017-10-24 14:58 | Operative Report ---
Operative/Inv Procedure Report Surgery Date: 10/24/17 Name of Procedure: 1. Incision and drainage of complex postoperative wound 2. Removal prosthetic mesh abdominal wall 3. Placement of wound VAC Pre-Operative Diagnosis: Wound infection Post-Operative Diagnosis: Same Estimated Blood Loss: scant Surgeon/Sack Sorter: John Adams MD Anesthesia: laryngeal mask airway Microbiology: Abdominal wall wound fluid Operative Indication: This is an obese diabetic woman who presents 3 weeks after anterior components release with onlay bioabsorbable mesh with incisional drainage. Operative/Procedure Note Note: After consent she is brought to the operating room laid supine. Gen. anesthesia was obtained and her abdomen was prepped and draped. There was an open sinus tract in the midline lower abdominal wound. It was opened bluntly and sharply. Vicryl sutures and subcutaneous space were taken out sharply. There is moderate amount of purulence, a specimen was sent for culture. The wound was then fully explored. Much of the lateral flaps had already healed and were tethered down to the anterior abdominal wall. There was a tract of infection along her right lower quadrant drain. This was bluntly entered and the cavity evacuated. There was partially digested [place] bio a mesh. Decision was to remove it given the contamination. It was difficult to remove given its crumbly nature. A curet was used to remove it from the midline. Care was taken to not disrupt the midline closure which appeared to be healing nicely. The wound was then pulse lavaged with normal saline. The result was that of healthy granulation tissue and no evidence of residual purulence. A decision at this point was to place a wound VAC. A medium VAC sponge was placed into the wound and sealed was placed over. Vacuum was placed and no leaks were seen. Patient tolerated procedure well sponge and needle counts are correct. CC: Delano NARVAEZ,Yadira
[~2017-10-24 15:13] MED LIST changes: +ELIQUIS5 M1 PO; +LOVENOX80 MG/0.1 SC
--- NOTE | 2017-10-24 18:14 | PN- Student ---
Tre Fong 10/24/171808: Subjective Subjective: Patient denies any pain. States she feels well after her procedure. Daughter at BS. Denies: HOPPER, vision changes, SOB, chest pain, NVD, paresthesias or syncope. Objective Objective: GENERAL: Pt lying supine in bed comfortable. NAD. A+Ox4 RESP: Good resp effort. CTAB. CARDIO: RRR, no MRG, S1/S2 audible ABD: Soft, NTND. Wound vac and drain in place. Dressing CDI. MUSC: 5/5 strength, full ROM. pulses palpable througohut. Compression devices on LE bilaterally. Nontender, nonedematous. NEURO: Sensation intact throughout. Results Results: Microbiology 10/24 145 TRUNK/O.R.: Culture & Sensitivity - RES 10/24 1449 TRUNK/O.R.: Gram Stain - RES 10/24 1419 BODY FLUID: Body Fluid Culture - CAN Cancelled: ... 10/24 1419 BODY FLUID: Gram Stain - CAN Cancelled: ... Assessment/Plan Assessment: Eugenia is a 62 yo F POD-0 s/p abd wound debridement/mesh removal and wound vac placement. Pt seems to be recovering well from procedure and is NAD. Pt was on SQ heparin since last procedure but Dr. Adams informed her to D/C on . Pt on coumadin daily. Pt has no eaten/drank anything since procedure. No flatus. No BM. No urination. No ambriz in place. Pt on 3L O2 via [place]- states she is not on O2 at home but does use CPAP machine at night. PT has not questions or concerns at this time. Plan: SQ heparin DVT prophyx. Continue antibx 24 hr Start clear liquid diet. OOB amb with PT Continue IVF and pain meds as ordered Carmen Sandhu 10/24/172026: Subjective Subjective: feeling well, denies pain. altagracia meal Objective Objective: abd: nt, soft, wound vac in place to good suction Assessment/Plan Plan: doing well postop. Hx DVT/PE on anticoagulation. INR in am. Restart lovenox tomorrow, coumadin tomorrow evening. Dose per INR. Wound vac change on Friday. Ancef ATC for wound infection. Will dw attending
[2017-10-24 22:21] VITALS: BP 126/62
[2017-10-25 06:31] VITALS: BP 120/76
[2017-10-25 09:03] LABS: PT 13.7 SEC (9.4-12.5)
[2017-10-25 09:07] LABS: ABSOLUTE BASOPHIL COUNT 0 /CUMM (0.0-0.2); ABSOLUTE EOSINOPHIL COUNT 0.2 /CUMM (0.0-0.7); ABSOLUTE GRANULOCYTE CT 8.8 /CUMM (1.4-6.5); ABSOLUTE LYMPH COUNT 1.9 /CUMM (1.2-3.4); ABSOLUTE MONOCYTE COUNT 0.9 /CUMM (0.10-0.60); BASOPHIL % 0.2 % (0.0-2.0); GRANULOCYTE % 74.5 % (42.2-75.2); HEMATOCRIT 31.6 % (37-47); MEAN CORPUSCULAR HGB 26.5 PG (27.0-31.0); MEAN CORPUSCULAR VOLUME 80.3 FL (81.0-99.0); MEAN PLATELET VOLUME 8.6 FL (7.4-10.4); PLATELET COUNT 399 /CUMM (130-400); RBC DISTRIBUTION WIDTH 14.2 % (11.5-14.5); RED BLOOD CELL CT 3.93 /CUMM (4.20-5.40); WHITE BLOOD CELL COUNT 11.9 /CUMM (4.8-10.8)
[2017-10-25 14:03] VITALS: BP 120/70
--- NOTE | 2017-10-25 15:50 | PN- General Surgery ---
Subjective Subjective: Postop operative cleaning out of an infected wound after repair of large ventral hernia, now with wound VAC Patient without complaints no new pain and fevers or sweats Objective Vital Signs and I&Os Vital Signs Date Time Temp Pulse Resp B/P B/P Pulse O2 O2 Flow FiO2 Mean Ox Delivery Rate 10/25 1403 99.0 83 20 120/70 94 Room Air 10/25 0815 120/76 10/25 0815 120/76 10/25 0815 120/76 10/25 0631 99.6 87 20 120/76 94 10/25 0000 94 Nasal 3.0L Cannula 10/24 2221 99.1 85 18 126/62 94 Nasal 3.0L Cannula 10/24 1800 97 Nasal 3.0L Cannula Intake & Output 10/25 1600 10/25 0800 10/25 0000 10/24 1600 10/24 0800 10/24 0000 Intake Total 1950 320 320 Output Total 400 350 Balance 1550 -30 320 Intake, IV 120 80 80 Intake, Oral 1830 240 240 Output, 100 100 Drainage Output, Urine 300 250 Patient 210 lb 216 lb Weight Weight Reported by Patient Measurement Method Physical Exam: Constitutional: no acute distress no pain Eyes: sclera anicteric ENMT: moist mucous membranes Cardiovascular: S1-S2 no murmurs no peripheral edema Respiratory: clear to auscultation with normal respiratory effort and no intercostal retractions GI: abdomen soft nontender nondistended VAC secure no erythema Extremities / lymphatics: free range of motion no peripheral edema Skin: no jaundice no rashes warm, nondiaphoretic Psychiatric: mood and affect are appropriate and alert and oriented to person place and time Current Medications: Current Medications Sig/Jasmin Start time Last Medication Dose Route Stop Time Status Admin Amlodipine Besylate 10 MG DAILY 10/25 1000 AC 10/25 PO 0815 Cefazolin Sodium 2 GM Q8H 10/25 0200 AC 10/25 N/A 1 UNIT IV 1022 Cefazolin Sodium 2 GM IQ8 10/24 1600 DC 10/24 N/A 1 UNIT IV 1848 Cefazolin Sodium 2,000 MG ONCE 10/24 0000 DC IV 10/24 2359 Enoxaparin Sodium 160 MG DAILY 10/25 1000 AC 10/25 SC 0815 Hydrochlorothiazide 12.5 MG DAILY 10/25 1000 AC 10/25 PO 0815 Insulin Human Regular 0 TIDAC/HS 10/24 1700 AC 10/25 SC 1251 Losartan Potassium 100 MG DAILY 10/25 1000 AC 10/25 PO 0815 Pravastatin Sodium 40 MG DAILY 10/25 1000 AC 10/25 PO 0815 Propranolol HCl 10 MG DAILY 10/25 1000 AC 10/25 PO 0815 Warfarin Sodium 5 MG COUMADIN 1700 ONE 10/25 1700 AC PO 10/25 1701 Assessment/Plan Assessment/Plan Doing well postop continue present care plan to discharge once vac is set up Core Measures Venous Thromboembolism VTE Risk Factors Acute Medical Illness No Mechanical VTE Prophylaxis d/t Early Ambulation No VTE Pharm Prophylaxis d/t LowRisk-No Interven Req'd
[2017-10-25 22:54] VITALS: BP 136/75
[2017-10-26 07:38] VITALS: BP 141/88
--- NOTE | 2017-10-26 08:09 | PN- General Surgery ---
See Addendum Subjective Subjective: No complaints. Wound vac functioning. Out of bed to chair eating breakfast. Anticipates discharge to home once wound vac arranged for that, ?tomorrow. She denies dizziness. No shortness of breath. No chest pains. Objective Vital Signs and I&Os Vital Signs Date Time Temp Pulse Resp B/P B/P Pulse O2 O2 Flow FiO2 Mean Ox Delivery Rate 10/26 0738 98.9 90 18 141/88 96 Room Air 10/25 2254 98.6 95 18 136/75 93 Room Air 10/25 1403 99.0 83 20 120/70 94 Room Air 10/25 0815 120/76 10/25 0815 120/76 10/25 0815 120/76 Intake & Output 10/26 1600 10/26 0800 10/26 0000 10/25 1600 10/25 0800 10/25 0000 Intake Total 967 933 1311 320 320 Output Total 40 400 350 Balance 318 634 0125 -30 320 Intake, IV 80 80 120 80 80 Intake, Oral 251 071 6706 240 240 Output, 40 100 100 Drainage Output, Urine 300 250 Patient 210 lb Weight Weight Reported by Patient Measurement Method Physical Exam: General - alert & oriented x 3. out of bed to chair. no acute distress. Lungs - clear bilaterally. no w/r/r. Cardiac - s1s2. reg. Abdomen - soft. wound vac in place, small area midline incision. no leak or alarming. vac cannister with serosang drainage. Extremities - warm bilaterally. no c/c/e. calves soft and nontender b/l. Current Medications: Current Medications Sig/Jasmin Start time Last Medication Dose Route Stop Time Status Admin Amlodipine Besylate 10 MG DAILY 10/25 1000 AC 10/25 PO 0815 Cefazolin Sodium 2 GM Q8H 10/25 0200 AC 10/26 N/A 1 UNIT IV 0158 Enoxaparin Sodium 160 MG DAILY 10/25 1000 AC 10/25 SC 0815 Hydrochlorothiazide 12.5 MG DAILY 10/25 1000 AC 10/25 PO 0815 Insulin Human Regular 4 UNITS .STK-MED ONE 10/25 1708 DC IV 10/25 1709 Insulin Human Regular 2 UNITS .STK-MED ONE 10/25 1250 DC IV 10/25 1251 Insulin Human Regular 2 UNITS .STK-MED ONE 10/25 0812 DC IV 10/25 0813 Insulin Human Regular 0 TIDAC/HS 10/24 1700 AC 10/26 SC 0757 Losartan Potassium 100 MG DAILY 10/25 1000 AC 10/25 PO 0815 Pravastatin Sodium 40 MG DAILY 10/25 1000 AC 10/25 PO 0815 Propranolol HCl 10 MG DAILY 10/25 1000 AC 10/25 PO 0815 Warfarin Sodium 5 MG COUMADIN 1700 ONE 10/25 1700 DC 10/25 PO 10/25 1701 1715 Results Last 48 Hours of Labs: Laboratory Tests 10/26 10/25 0710 0825 Chemistry Sodium (137 - 145 mmol/L) 142 Potassium (3.5 - 5.1 mmol/L) 4.0 Chloride (98 - 107 mmol/L) 100 Carbon Dioxide (22 - 30 mmol/L) 26 Anion Gap (5 - 16) 15 BUN (7 - 17 mg/dL) 8 Creatinine (0.5 - 1.0 mg/dL) 0.5 Estimated GFR (>60 ml/min) > 60 BUN/Creatinine Ratio (7 - 25 %) 16.0 Phosphorus (2.5 - 4.5 mg/dL) 4.4 Magnesium (1.6 - 2.3 mg/dL) 2.0 Coagulation PT (9.4 - 12.5 SEC) Pending 13.7 H INR (0.90 - 1.19) Pending 1.31 H Hematology CBC w Diff Pending NO MAN DIFF REQ WBC (4.8 - 10.8 /CUMM) Pending 11.9 H RBC (4.20 - 5.40 /CUMM) Pending 3.93 L Hgb (12.0 - 16.0 G/DL) Pending 10.4 L Hct (37 - 47 %) Pending 31.6 L MCV (81.0 - 99.0 FL) Pending 80.3 L MCH (27.0 - 31.0 PG) Pending 26.5 L MCHC (33.0 - 37.0 G/DL) Pending 33.0 RDW (11.5 - 14.5 %) Pending 14.2 Plt Count (130 - 400 /CUMM) Pending 399 MPV (7.4 - 10.4 FL) Pending 8.6 Gran % (42.2 - 75.2 %) 74.5 Lymphocytes % (20.5 - 51.1 %) 15.8 L Monocytes % (1.7 - 9.3 %) 7.5 Eosinophils % (0 - 5 %) 2.0 Basophils % (0.0 - 2.0 %) 0.2 Absolute Granulocytes (1.4 - 6.5 /CUMM) 8.8 H Absolute Lymphocytes (1.2 - 3.4 /CUMM) 1.9 Absolute Monocytes (0.10 - 0.60 /CUMM) 0.9 H Absolute Eosinophils (0.0 - 0.7 /CUMM) 0.2 Absolute Basophils (0.0 - 0.2 /CUMM) 0 Assessment/Plan Assessment/Plan This 62 year old female with hx pe, htn, dm, hld, is POD#2 s/p incision and drainage of complex postoperative wound, removal prosthetic mesh abdominal wall, placement of wound VAC, for wound infection tolerating diabetic diet lovenox 160 daily, to bridge with coumadin for hx PE f/u INR continue iv ancef. f/u final OR cxs wound vac change planned for tomorrow vac paperwork to be completed after vac change once measurements are defined likely d/c home tomorrow with wound vac case management to assist will d/w Core Measures Venous Thromboembolism VTE Risk Factors Acute Medical Illness No Mechanical VTE Prophylaxis d/t Early Ambulation No VTE Pharm Prophylaxis d/t LowRisk-No Interven Req'd
[2017-10-26 08:32] LABS: PT 13.3 SEC (9.4-12.5)
[2017-10-26 08:41] LABS: ABSOLUTE BASOPHIL COUNT 0 /CUMM (0.0-0.2); ABSOLUTE EOSINOPHIL COUNT 0.2 /CUMM (0.0-0.7); ABSOLUTE GRANULOCYTE CT 5.6 /CUMM (1.4-6.5); ABSOLUTE LYMPH COUNT 1.7 /CUMM (1.2-3.4); ABSOLUTE MONOCYTE COUNT 0.6 /CUMM (0.10-0.60); BASOPHIL % 0.4 % (0.0-2.0); EOSINOPHIL % 2.7 % (0-5); GRANULOCYTE % 68.4 % (42.2-75.2); HEMATOCRIT 31.9 % (37-47); MEAN CORPUSCULAR HGB 26.7 PG (27.0-31.0); MEAN CORPUSCULAR HGB CONC 33.2 G/DL (33.0-37.0); MEAN CORPUSCULAR VOLUME 80.4 FL (81.0-99.0); MEAN PLATELET VOLUME 8.7 FL (7.4-10.4); PLATELET COUNT 394 /CUMM (130-400); RBC DISTRIBUTION WIDTH 13.6 % (11.5-14.5); RED BLOOD CELL CT 3.97 /CUMM (4.20-5.40); WHITE BLOOD CELL COUNT 8.1 /CUMM (4.8-10.8)
[2017-10-26 14:02] VITALS: BP 130/72
[2017-10-26 22:05] VITALS: BP 122/72
--- NOTE | 2017-10-26 22:51 | Event Note ---
Event Note Event Note: called by nurse due to wound vac "blockage" message unable to correct blockage by changing cannister / flushing line with sterile flush, so the foam was removed and a new granufoam dressing was placed. measurements taken at that time to complete vac paperwork (wound edges 7.5cm long, 4cm wide, 7cm deep with areas of tunneling). pink granulating wound bed appreciated without gross exudates or foul smelling discharge. no leak appreciated after vac changed, and previous "blockage" message no longer alarming. vac paperwork completed will d/w
[2017-10-27 05:48] VITALS: BP 110/72
--- NOTE | 2017-10-27 08:44 | PN- General Surgery ---
See Addendum Subjective Subjective: Feeling well this am, denies pain. no ambulation "because I'm hooked up (to wv) ". reassured she can, and should, be oob despite wv. no n/v/cp/sob/fevers. altagracia diet, passing flatus/bm Objective Vital Signs and I&Os Vital Signs Date Time Temp Pulse Resp B/P B/P Pulse O2 O2 Flow FiO2 Mean Ox Delivery Rate 10/27 0548 98.3 86 20 110/72 97 Room Air 10/26 2205 99.6 90 20 122/72 94 Room Air 10/26 1402 98.1 74 20 130/72 93 Room Air 10/26 1002 90 141/88 10/26 1002 90 141/88 10/26 1001 90 141/88 Intake & Output 10/27 1600 10/27 0800 10/27 0000 10/26 1600 10/26 0800 10/26 0000 Intake Total 1980 320 560 Output Total 40 Balance 1979 280 560 Intake, IV 120 80 80 Intake, Oral 1860 240 480 Number 0 Bowel Movements Output, 40 Drainage Physical Exam: gen- nad card-s1s2 rrr pulm- ctab abd- obese, soft, wv black sponge in place to good sution, nt, +bs ext- calves soft nt Results Last 48 Hours of Labs: am labs pending or cx: proteus, s. aureus, see report for sensitivities fs: 133,164,93 Assessment/Plan Assessment/Plan A- POD3 sp abd wound I&D/washout/mesh removal/wv placement, or cultures show resistance to current abx, vac changed and wound assessed last evening due to suction malfunction, now working without issues, feeling well, stable, on lovenox/coum bridge for pe P- -dc ancef. start augmentin per cx/sens -dc planning- home wv, services needed - oob, ambulate - cont ada diet - labs pending. cont lovenox-coumadin bridge per INR - will dw Dr. Adams Core Measures Venous Thromboembolism VTE Risk Factors Acute Medical Illness No Mechanical VTE Prophylaxis d/t Early Ambulation No VTE Pharm Prophylaxis d/t LowRisk-No Interven Req'd
[2017-10-27 08:51] LABS: ABSOLUTE BASOPHIL COUNT 0 /CUMM (0.0-0.2); ABSOLUTE EOSINOPHIL COUNT 0.2 /CUMM (0.0-0.7); ABSOLUTE GRANULOCYTE CT 6.7 /CUMM (1.4-6.5); ABSOLUTE LYMPH COUNT 1.9 /CUMM (1.2-3.4); ABSOLUTE MONOCYTE COUNT 0.5 /CUMM (0.10-0.60); BASOPHIL % 0.2 % (0.0-2.0); EOSINOPHIL % 1.9 % (0-5); GRANULOCYTE % 72.7 % (42.2-75.2); HEMATOCRIT 33.1 % (37-47); MEAN CORPUSCULAR HGB 26.3 PG (27.0-31.0); MEAN CORPUSCULAR HGB CONC 32.8 G/DL (33.0-37.0); MEAN CORPUSCULAR VOLUME 80.1 FL (81.0-99.0); MEAN PLATELET VOLUME 8.7 FL (7.4-10.4); PLATELET COUNT 436 /CUMM (130-400); RBC DISTRIBUTION WIDTH 13.9 % (11.5-14.5); RED BLOOD CELL CT 4.13 /CUMM (4.20-5.40); WHITE BLOOD CELL COUNT 9.2 /CUMM (4.8-10.8)
[2017-10-27 09:00] LABS: PT 13.9 SEC (9.4-12.5)
[2017-10-27 10:02] VITALS: BP 134/86
[2017-10-27] MEDS ORDERED: AMOX-CLAV 875-1 EACH PO ×2 (10:17→12:05)
[2017-10-27] MEDS ORDERED: LOVENOX80 MG/0.1 SC ×2 (10:17→12:05)
[2017-10-27] MEDS ORDERED: PERCOCET 5-3251 EACH PO ×2 (10:22→12:05)
--- NOTE | 2017-10-27 10:31 | Patient Discharge Instructions ---
Discharge Instructions General Discharge Information You were seen/treated for: Surgical wound infection You had these procedures: abdominal wound exploration, incision/drainage of wound, mesh removal, wound vac placement Watch for these problems: fever>101, chills, worsening abdominal pain, drainage/redness from incision, inability to eat or drink, inability to pass gas/move bowels, Other wound care: Wound Vac to abdominal wound: medium black sponge, change Friday/Friday/ . Last change 10/26/17. VNA to assist Special Instructions: PE: continue Lovenox injections 160mg daily for 2 weeks. No Coumadin per Dr. Taylor and Dr. Wick. See Dr. Wick in 1-2 weeks for further followup. Abdominal infection: take augmentin (antibiotic) twice daily for 1 week. Take as directed Diet Recommended Diet: Diabetic Activity Activity Self Limited: Yes Additional ACTIVITY Info: activity as tolerated Acute Coronary Syndrome Inclusion Criteria At DC or during hospital stay patient has or had the following: ACS DIAGNOSIS No Discharge Core Measures Meds if any: Prescribed or Continued at Discharge Meds if any: NOT Prescribed or Continued at Discharge Congestive Heart Failure Inclusion Criteria At DC or during hospital stay patient has or had the following: CHF DIAGNOSIS No Discharge Core Measures Meds if any: Prescribed or Continued at Discharge Meds if any: NOT Prescribed or Continued at Discharge Cerebrovascular accident Inclusion Criteria At DC or during hospital stay patient has or had the following: CVA/TIA Diagnosis No Discharge Core Measures Meds if any: Prescribed or Continued at Discharge Meds if any: NOT Prescribed or Continued at Discharge Venous thromboembolism Inclusion Criteria VTE Diagnosis Yes VTE Type Pulmonary Embolism VTE Confirmed by (Test) NONE (diagnosed pre admission) Discharge Core Measures - Per Current guidelines, there needs to be overlap - treatment for the first 5 days of Warfarin therapy. - If discharged on Warfarin prior to 5 days of - overlap therapy, the patient will need to be - assessed for post discharge needs including - *Post discharge parental anticoagulation - *Warfarin and/or parental anticoagulation education - *Follow up date to check INR post discharge At least 5 days overlap therapy as Inpatient Yes (on meds preadmission, continue ) Meds if any: Prescribed or Continued at Discharge Note: Overlap Therapy is Warfarin and Anticoagulant Meds if any: NOT Prescribed or Continued at Discharge Comment PE diagnosed prior to this adm
--- NOTE | 2017-10-27 11:14 | Surgical Discharge Summary ---
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 Psychosocial History Where Do You Live? Home Who Do You Live With? Mother Services at Home: None What is Your Primary Language? Bulgarian Review of Systems: see preop Hospital Course Course Attending Physician: John Adams MD Primary Care Physician: Delano NARVAEZ,[facility] Course: Patient taken to OR for washout of abdominal wound and explantation of bioabsorbable mesh. VAC placed intraoperatively. She was maintained on IV abx. Cultures resistant to Ceph. Changed to Augmentin orally. First VAC change showed granulation. Allergies: Coded Allergies: NO KNOWN ALLERGIES (10/07/13) Significant Procedures: Incision and drainage of complex postoperative wound Explantation of bioabsorbable mesh Placement of wound VAC Disposition Summary Disposition Principal Diagnosis: Wound infection Additional Diagnosis: none Discharge Disposition: home health services Discharge Instructions General Discharge Information Code Status: Full Code Patient's Diet: diabetic regular Patient's Activity: no lifting Follow-Up Instructions/Appts: one week as arranged Medications at Discharge Discharge Medications: Continue taking these medications: Propranolol HCl (Propranolol HCl) 10 MG TABLET 1 Tablet ORAL DAILY Qty = 30 Comments: Last Taken: 10/16/17 Time: 0750 Amlodipine Besylate (Amlodipine Besylate) 10 MG TABLET 1 Tablet ORAL DAILY Qty = 30 Comments: Last Taken: 10/16/17 Time: 0751 Metformin HCl (Metformin HCl) 1,000 MG TABLET 1 Tablet ORAL TWICE DAILY Qty = 60 Comments: NOT GIVEN THIS ADMISSION Ergocalciferol (Vitamin D2) (Vitamin D2) 50,000 UNIT CAPSULE 1 Capsule ORAL DAILY Qty = 13 Comments: NOT GIVEN THIS ADMISSION Losartan/Hydrochlorothiazide (Losartan-Hctz 100-12.5 MG Tab) 100 MG-12.5 MG TABLET 1 Tablet ORAL DAILY Qty = 30 Comments: Last Taken:10/16/17 Time: 0750 Pravastatin Sodium (Pravastatin Sodium) 40 MG TABLET 1 Tablet ORAL DAILY Qty = 30 Comments: Last Taken:10/15/17 Time: 1725 Start taking the following new medications: Amoxicillin/Clavulanate Potass (Amox-Clav 875-125 MG Tablet) 875 MG-125 MG TABLET 875 Milligram ORAL EVERY 12 HOURS Qty = 14 No Refills The following medications have been changed: Old: Oxycodone HCl/Acetaminophen (Percocet 5-325 MG Tablet) 5 MG-325 MG TABLET 1-2 Tablet ORAL EVERY 4 HOURS NEEDED as needed for PAIN Qty = 30 New: Oxycodone HCl/Acetaminophen (Percocet 5-325 MG Tablet) 5 MG-325 MG TABLET 1 Tablet ORAL EVERY 4 HOURS NEEDED as needed for PAIN Qty = 12 Old: Enoxaparin Sodium (Lovenox) 80 MG/0.8 ML SYRINGE 160 Milligram Inject into fatty tissue DAILY Qty = 13 New: Enoxaparin Sodium (Lovenox) 80 MG/0.8 ML SYRINGE 160 Milligram Inject into fatty tissue DAILY Qty = 18 Instructions: TAKE FOR 2 WEEKS, then as directed by Dr. Taylor Copies To: Delano NARVAEZ,[facility]
== END 2017-10-27 16:30 | disposition home health service (06) | DRG 858 ==
LOC: STS 15:13 → PACUH 15:15 → 2NB 15:41 → ENRESERV 15:58 → ENTRNSPT 16:44 → 2NB 17:26 → CMPTRNSPT 17:33 → 2NB 10-25 11:21 → ENPENDDIS 10-27 14:17 → ENTRNSPT 10-27 16:21 → 2NB 10-27 16:30 → CMPTRNSPT 10-27 16:37
PROVIDERS: Physician Assistant; Physician Assistant Surgical
PROC: 0W9F0ZZ Drainage of Abdominal Wall, Open Approach (ICD-10-PCS; principal; 2017-10-24)
PROC: 0WPF0JZ Removal of Synthetic Substitute from Abdominal Wall, Open Approach (ICD-10-PCS; 2017-10-24)
PROC: 2W13X6Z Compression of Abdominal Wall using Pressure Dressing (ICD-10-PCS; 2017-10-24)
DX: T81.4XXA Infection following a procedure, initial encounter (principal); B96.89 Other specified bacterial agents as the cause of diseases classified elsewhere; E11.9 Type 2 diabetes mellitus without complications; E66.9 Obesity, unspecified; G47.33 Obstructive sleep apnea (adult) (pediatric); Z68.34 Body mass index [BMI] 34.0-34.9, adult; Z79.4 Long term (current) use of insulin; Z82.49 Family history of ischemic heart disease and other diseases of the circulatory system; Z79.01 Long term (current) use of anticoagulants; Z86.718 Personal history of other venous thrombosis and embolism; I10 Essential (primary) hypertension; Z90.710 Acquired absence of both cervix and uterus; Y83.8 Other surgical procedures as the cause of abnormal reaction of the patient, or of later complication, without mention of misadventure at the time of the procedure
CPT/HCPCS: 2NASP; 2NBSP; 6040; 87070; 87075; 87184; 36415; 82436; 87147; G0378; J0131; J0690; J1650; J1815; J2250; J3010; J3490